=== PATIENT | female | born 1985 | race Caucasian/White ===

== ENCOUNTER 2016-11-23 13:45 | Emergency (ER) | payer SELFPAY ==
[~2016-11-23] VITALS: Ht 167.6 cm; Wt 122.7 kg
[~2016-11-23 13:45] MED LIST: NORCO 325 MG-7.1 TAB PO
[2016-11-23 13:46] VITALS: TEMP 98.1
[2016-11-23] MEDS ORDERED: LEXAPRO20 MG PO (13:50)
[2016-11-23] MEDS ORDERED: RISPERDAL3 MG PO (13:50)
[2016-11-23] MEDS ORDERED: ATARAX 25MG25 MG/TAB PO (13:51)
[2016-11-23 18:57] VITALS: BP 132/84; PULSE 70
== END 2016-11-23 18:58 | disposition home or self-care (01) ==
LOC: COL.ER 13:45
DX: G35 Multiple sclerosis (principal); H53.9 Unspecified visual disturbance; R51 Headache
CPT/HCPCS: A9585; J1200; J1885; J2550; J2765; J2930; J7030; J7060

== ENCOUNTER 2016-11-26 10:00 | Outpatient (RCR) | payer SELFPAY ==
[2016-11-25 10:23] VITALS: BP 120/63; PULSE 70; TEMP 98
[~2016-11-26] VITALS: Ht 167.6 cm; Wt 131.0 kg
[~2016-11-26 10:00] MED LIST changes: +ATARAX 25MG25 MG/TAB PO; +LEXAPRO20 MG PO; +RISPERDAL3 MG PO
[2016-11-26 10:10] VITALS: BP 133/67; PULSE 88; TEMP 98
== END 2016-11-27 11:23 ==
LOC: EUO 10:00
DX: G35 Multiple sclerosis (principal)
CPT/HCPCS: J2930; J7060

== ENCOUNTER → 2016-12-21 | Outpatient (CLI) | payer SELFPAY ==
[~2016-12-21] VITALS: Ht 167.6 cm; Wt 132.0 kg
[2016-12-21 09:01] VITALS: BP 150/80; PULSE 76
== END ==
LOC: COL.RAD 08:44
DX: Z01.89 Encounter for other specified special examinations (principal)
CPT/HCPCS: Q9967

== ENCOUNTER 2017-01-02 09:49 | Outpatient (CLI) | payer SELFPAY ==
[~2017-01-02] VITALS: Ht 167.6 cm; Wt 131.1 kg
[2017-01-02] MEDS ORDERED: KLONOPIN 0.5MG0.5 MG PO (10:18)
[2017-01-02 10:22] VITALS: BP 128/83; PULSE 85
[2017-01-02 12:00] VITALS: BP 105/68; PULSE 68; PULSE 70
[2017-01-02 12:15] VITALS: BP 118/88; PULSE 72; TEMP 98.7
[2017-01-02 12:30] VITALS: BP 127/85; PULSE 74
[2017-01-02 12:45] VITALS: BP 127/83; PULSE 73
[2017-01-02 13:00] VITALS: BP 131/91; PULSE 73
[2017-01-02 14:09] LABS: CEREBROSPINAL TUBE #4
[2017-01-02 14:10] LABS: CSF APPEARANCE CLEAR; CSF COLOR COLORLESS
[2017-01-02 14:11] LABS: CSF POLYMORPHONUCLEAR 4 % (0-6)
== END 2017-01-02 13:27 | disposition home or self-care (01) ==
LOC: COL.RAD 09:49
PROVIDERS: Psychiatry & Neurology Neurology
DX: Z86.69 Personal history of other diseases of the nervous system and sense organs (principal)

== ENCOUNTER 2017-07-27 15:01 | Emergency (ER) | payer SELFPAY ==
[~2017-07-27] VITALS: Ht 167.6 cm; Wt 115.8 kg
[~2017-07-27 15:01] MED LIST changes: +KLONOPIN 0.5MG0.5 MG PO
[2017-07-27 15:06] VITALS: PULSE 78; TEMP 98.3
[2017-07-27] MEDS ORDERED: ZOFRAN 4MG T4 MG/TAB PO (16:27)
[2017-07-27] MEDS ORDERED: NORCO 325 MG-51 TAB PO (16:27)
[2017-07-27 17:18] LABS: COLLECTION METHOD CLEAN CATCH
[2017-07-27 17:28] LABS: MUCOUS Present /lpf; PH 6 (5-8); SQUAMOUS EPITHELIAL 0-2 /hpf; URINE APPEARANCE Hazy; URINE BACTERIA None Seen /hpf; URINE BILIRUBIN Negative (NEGATIVE); URINE BLOOD Negative (NEGATIVE); URINE COLOR Yellow; URINE GLUCOSE Negative (NEGATIVE); URINE KETONE Negative (NEGATIVE); URINE LEUKOCYTE ESTERASE Negative (NEGATIVE); URINE NITRATE Negative (NEGATIVE); URINE PROTEIN(semi-quant) Negative (NEGATIVE); URINE RBC 0-2 /hpf
== END 2017-07-27 16:34 | disposition home or self-care (01) ==
LOC: COL.ER 15:01
PROVIDERS: Physician Assistant
DX: R20.2 Paresthesia of skin (principal)

== ENCOUNTER → 2017-09-13 | Outpatient (CLI) | payer SELFPAY ==
[~2017-09-13] MED LIST changes: +NORCO 325 MG-51 TAB PO; +ZOFRAN 4MG T4 MG/TAB PO
[2017-09-13 16:07] LABS: BASO # 0.1 (0.0-0.2); BASO % 0.7 % (0.0-2.0); EOS # 0.1 (0.0-0.7); EOS % 1.4 % (0-4.0); GRAN # 5.9 (1.4-6.5); GRAN % 68.4 % (42.2-75.2); HEMATOCRIT 40.7 % (37.0-47.0); HEMOGLOBIN 13.5 g/dl (12.5-16.0); LYMPH % 23.5 % (20.0-51.0); MEAN CELL VOLUME 84 fl (80.0-100.0); MEAN CORPUSCULAR HEMOGLOBIN 28 pg (27.0-31.0); MEAN CORPUSCULAR HGB CONC 33 g/dl (33.0-37.0); MEAN PLATELET VOLUME 10.7 fl (7.4-10.4); MONO # 0.5 (0.1-0.6); MONO % 5.9 % (1.7-9.3); PLATELET COUNT 201 K/mm3 (130-400); RED BLOOD COUNT 4.86 M/mm3 (4.10-5.30); REDCELL DISTRIBUTION WIDTH-CV 13.1 % (11.5-14.5)
[2017-09-13 16:18] LABS: ALBUMIN 3.9 gm/dL (3.5-5.0); BILIRUBIN,TOTAL 0.6 mg/dL (0.0-1.0); CALCIUM 8.9 mg/dL (8.4-10.2); CREATININE, serum 0.6 mg/dL (0.52-1.25); POTASSIUM 3.9 mmol/L (3.4-5.0); TOTAL PROTEIN 7.2 gm/dL (6.4-8.2)
== END ==
LOC: COL.LAB 15:14
PROVIDERS: Psychiatry & Neurology Neurology
DX: G35 Multiple sclerosis (principal); G43.109 Migraine with aura, not intractable, without status migrainosus; E55.9 Vitamin D deficiency, unspecified

== ENCOUNTER 2018-01-12 15:42 | Emergency (ER) | payer BC ==
[~2018-01-12] VITALS: Ht 167.6 cm; Wt 95.5 kg
[2018-01-12 15:49] VITALS: TEMP 98.4
[2018-01-12 16:08] LABS: COLLECTION METHOD CLEAN CATCH
[2018-01-12 16:14] LABS: MUCOUS Present /lpf; PH 7 (5-8); URINE APPEARANCE Hazy; URINE BACTERIA Rare /hpf; URINE BILIRUBIN Negative (NEGATIVE); URINE BLOOD Negative (NEGATIVE); URINE COLOR Yellow; URINE GLUCOSE Negative (NEGATIVE); URINE KETONE Negative (NEGATIVE); URINE LEUKOCYTE ESTERASE 1+ (NEGATIVE); URINE NITRATE Negative (NEGATIVE); URINE PROTEIN(semi-quant) Negative (NEGATIVE); URINE RBC 0-2 /hpf; URINE UROBILINOGEN Negative (NEGATIVE)
[2018-01-12 16:19] LABS: BASO # 0.1 (0.0-0.2); EOS # 0.1 (0.0-0.7); EOS % 1.5 % (0-4.0); GRAN # 4.7 (1.4-6.5); HEMATOCRIT 43.6 % (37.0-47.0); HEMOGLOBIN 14.5 g/dl (12.5-16.0); LYMPH # 2.3 (1.2-3.4); LYMPH % 28.2 % (20.0-51.0); MEAN CELL VOLUME 86 fl (80.0-100.0); MEAN CORPUSCULAR HEMOGLOBIN 29 pg (27.0-31.0); MEAN CORPUSCULAR HGB CONC 33 g/dl (33.0-37.0); MEAN PLATELET VOLUME 10.7 fl (7.4-10.4); MONO # 0.8 (0.1-0.6); PLATELET COUNT 300 K/mm3 (130-400); RED BLOOD COUNT 5.05 M/mm3 (4.10-5.30); REDCELL DISTRIBUTION WIDTH-CV 13.6 % (11.5-14.5)
[2018-01-12] MEDS ORDERED: SPRINTEC 35 MCG1 TAB PO (16:23)
[2018-01-12] MEDS ORDERED: ZANAFLEX2 MG PO (16:23)
[2018-01-12] MEDS ORDERED: AUBAGIO14 MG PO (16:23)
[2018-01-12 16:28] LABS: ALBUMIN 4.3 gm/dL (3.5-5.0); BILIRUBIN,TOTAL 0.7 mg/dL (0.0-1.0); CALCIUM 9.7 mg/dL (8.4-10.2); CREATININE, serum 0.68 mg/dL (0.52-1.25); POTASSIUM 4.1 mmol/L (3.4-5.0); TOTAL PROTEIN 7.8 gm/dL (6.4-8.2)
[2018-01-12] MEDS ORDERED: MACROBID 1100 MG/CAP PO (18:28)
[2018-01-12 18:41] VITALS: BP 122/103; PULSE 72
== END 2018-01-12 18:42 | disposition home or self-care (01) ==
LOC: COL.ER 15:42
PROVIDERS: Emergency Medicine
DX: R10.9 Unspecified abdominal pain (principal)
CPT/HCPCS: J7030; Q9967

== ENCOUNTER 2018-04-08 20:41 | Emergency (ER) | payer BC ==
[~2018-04-08] VITALS: Ht 167.6 cm; Wt 113.2 kg
[~2018-04-08 20:41] MED LIST changes: +AUBAGIO14 MG PO; +MACROBID 1100 MG/CAP PO; +SPRINTEC 35 MCG1 TAB PO; +ZANAFLEX2 MG PO
[2018-04-08 20:47] VITALS: TEMP 98.9
[2018-04-08 21:31] VITALS: BP 126/96; PULSE 84
[2018-04-08] MEDS ORDERED: BACTRIM DS 8001 TAB PO (21:34)
== END 2018-04-08 21:38 | disposition home or self-care (01) ==
LOC: COL.ER 20:41
DX: S91.341A Puncture wound with foreign body, right foot, initial encounter (principal); Y92.009 Unspecified place in unspecified non-institutional (private) residence as the place of occurrence of the external cause

== ENCOUNTER 2018-06-04 10:03 | Emergency (ER) | payer BC ==
[~2018-06-04] VITALS: Ht 167.6 cm; Wt 117.8 kg
[~2018-06-04 10:03] MED LIST changes: +BACTRIM DS 8001 TAB PO
[2018-06-04] MEDS ORDERED: NORCO 325 MG-51 TAB PO (10:38)
[2018-06-04] MEDS ORDERED: ZOFRAN ODT4 MG PO (10:38)
[2018-06-04 11:10] VITALS: BP 148/84; PULSE 67; TEMP 97.6
== END 2018-06-04 11:10 | disposition home or self-care (01) ==
LOC: COL.ER 10:03
DX: M79.602 Pain in left arm (principal); F31.9 Bipolar disorder, unspecified; G35 Multiple sclerosis; F43.10 Post-traumatic stress disorder, unspecified; F41.9 Anxiety disorder, unspecified; Z87.891 Personal history of nicotine dependence; Z90.89 Acquired absence of other organs

== ENCOUNTER 2018-07-24 17:54 | Emergency (ER) | payer BC ==
[~2018-07-24] VITALS: Ht 167.6 cm; Wt 113.6 kg
[~2018-07-24 17:54] MED LIST changes: +ZOFRAN ODT4 MG PO
[2018-07-24 18:02] VITALS: TEMP 98.2
[2018-07-24 18:57] LABS: BASO # 0.1 (0.0-0.2); BASO % 0.8 % (0.0-2.0); EOS # 0.2 (0.0-0.7); EOS % 1.8 % (0-4.0); GRAN # 6.3 (1.4-6.5); GRAN % 62.4 % (42.2-75.2); HEMATOCRIT 42.2 % (37.0-47.0); HEMOGLOBIN 13.8 g/dl (12.5-16.0); LYMPH # 2.6 (1.2-3.4); LYMPH % 25.2 % (20.0-51.0); MEAN CELL VOLUME 86 fl (80.0-100.0); MEAN CORPUSCULAR HEMOGLOBIN 28 pg (27.0-31.0); MEAN CORPUSCULAR HGB CONC 33 g/dl (33.0-37.0); MONO % 9.6 % (1.7-9.3); PLATELET COUNT 263 K/mm3 (130-400); RED BLOOD COUNT 4.92 M/mm3 (4.10-5.30); REDCELL DISTRIBUTION WIDTH-CV 13.2 % (11.5-14.5)
[2018-07-24 18:57] LABS: COLLECTION METHOD CLEAN CATCH
[2018-07-24 19:02] LABS: MUCOUS Present /lpf; PH 8 (5-8); SQUAMOUS EPITHELIAL 0-2 /hpf; URINE APPEARANCE Hazy; URINE BACTERIA None Seen /hpf; URINE BILIRUBIN Negative (NEGATIVE); URINE BLOOD Negative (NEGATIVE); URINE COLOR Yellow; URINE GLUCOSE Negative (NEGATIVE); URINE KETONE Negative (NEGATIVE); URINE LEUKOCYTE ESTERASE Negative (NEGATIVE); URINE NITRATE Negative (NEGATIVE); URINE PROTEIN(semi-quant) Negative (NEGATIVE); URINE RBC 0-2 /hpf; URINE UROBILINOGEN Negative (NEGATIVE)
[2018-07-24 19:10] LABS: ALBUMIN 4.1 gm/dL (3.5-5.0); BILIRUBIN,TOTAL 0.4 mg/dL (0.0-1.0); CALCIUM 9.6 mg/dL (8.4-10.2); CREATININE, serum 0.63 (0.52-1.25); POTASSIUM 3.8 mmol/L (3.4-5.0); TOTAL PROTEIN 7.6 gm/dL (6.4-8.2)
[2018-07-24 20:41] VITALS: BP 139/94; PULSE 81
== END 2018-07-24 20:41 | disposition home or self-care (01) ==
LOC: COL.ER 17:54
PROVIDERS: Emergency Medicine
DX: R10.11 Right upper quadrant pain (principal); F31.9 Bipolar disorder, unspecified; F41.9 Anxiety disorder, unspecified
CPT/HCPCS: J2270; J2405; J7030; Q9967

== ENCOUNTER → 2018-07-29 | Outpatient (CLI) | payer BC | LOC: COL.RAD 07-25 07:30 | DX: R10.11 Right upper quadrant pain (principal) ==

== ENCOUNTER 2018-09-23 09:44 | Emergency (ER) | payer BC ==
[~2018-09-23] VITALS: Ht 167.6 cm; Wt 115.9 kg
[2018-09-23 10:01] VITALS: TEMP 98.4
[2018-09-23 10:48] LABS: COLLECTION METHOD CLEAN CATCH
[2018-09-23 10:53] LABS: MUCOUS Present /lpf; PH 5 (5-8); SQUAMOUS EPITHELIAL 0-2 /hpf; URINE APPEARANCE Hazy; URINE BACTERIA Rare /hpf; URINE BILIRUBIN Negative (NEGATIVE); URINE BLOOD Negative (NEGATIVE); URINE COLOR Yellow; URINE GLUCOSE Negative (NEGATIVE); URINE KETONE Negative (NEGATIVE); URINE LEUKOCYTE ESTERASE Negative (NEGATIVE); URINE NITRATE Negative (NEGATIVE); URINE PROTEIN(semi-quant) Negative (NEGATIVE); URINE RBC None Seen /hpf; URINE UROBILINOGEN Negative (NEGATIVE)
[2018-09-23 11:36] LABS: BASO # 0.1 (0.0-0.2); BASO % 0.6 % (0.0-2.0); EOS # 0.1 (0.0-0.7); EOS % 1.6 % (0-4.0); GRAN # 5.9 (1.4-6.5); GRAN % 69.2 % (42.2-75.2); HEMATOCRIT 42.1 % (37.0-47.0); LYMPH # 1.7 (1.2-3.4); MEAN CELL VOLUME 85 fl (80.0-100.0); MEAN CORPUSCULAR HEMOGLOBIN 28 pg (27.0-31.0); MEAN CORPUSCULAR HGB CONC 33 g/dl (33.0-37.0); MONO # 0.7 (0.1-0.6); MONO % 8.4 % (1.7-9.3); PLATELET COUNT 245 K/mm3 (130-400); RED BLOOD COUNT 4.96 M/mm3 (4.10-5.30); REDCELL DISTRIBUTION WIDTH-CV 13.3 % (11.5-14.5)
[2018-09-23 11:51] LABS: ERYTHROCYTE SEDIMENTATION RATE 24 mm/hr (0-20)
[2018-09-23 11:53] LABS: ALBUMIN 4.2 gm/dL (3.5-5.0); BILIRUBIN,TOTAL 0.3 mg/dL (0.0-1.0); C-REACTIVE PROTEIN 1.4 mg/dL (0.0-0.9); CALCIUM 9.3 mg/dL (8.4-10.2); CREATININE, serum 0.57 (0.52-1.25); POTASSIUM 4.2 mmol/L (3.4-5.0); TOTAL PROTEIN 7.6 gm/dL (6.4-8.2)
[2018-09-23 14:20] VITALS: BP 133/75; PULSE 71
[2018-09-23] MEDS ORDERED: LEXAPRO 10MG10 MG PO (20:03)
[2018-09-23] MEDS ORDERED: AUBAGIO14 MG PO (20:03)
[2018-09-23] MEDS ORDERED: ATARAX 25MG25 MG/TAB PO ×2 (20:04→20:05)
[2018-09-23] MEDS ORDERED: RISPERDAL 1M1 MG/TAB PO (20:05)
[2018-09-23] MEDS ORDERED: ZANAFLEX2 MG PO (20:06)
== END 2018-09-23 14:14 | disposition home or self-care (01) ==
LOC: COL.ER 09:44
PROVIDERS: Family Medicine
DX: G35 Multiple sclerosis (principal)
CPT/HCPCS: J2930; J7060

== ENCOUNTER 2018-09-23 18:36 | Emergency (ER) | payer BC ==
[~2018-09-23] VITALS: Ht 167.6 cm; Wt 115.9 kg
[2018-09-23 18:46] VITALS: TEMP 98.7
[2018-09-23] MEDS ORDERED: AUBAGIO14 MG PO (20:03)
[2018-09-23] MEDS ORDERED: LEXAPRO 10MG10 MG PO (20:03)
[2018-09-23] MEDS ORDERED: ATARAX 25MG25 MG/TAB PO ×2 (20:04→20:05)
[2018-09-23] MEDS ORDERED: RISPERDAL 1M1 MG/TAB PO (20:05)
[2018-09-23] MEDS ORDERED: ZANAFLEX2 MG PO (20:06)
[2018-09-23 20:38] LABS: HEMATOCRIT 42.3 % (37.0-47.0); HEMOGLOBIN 14.1 g/dl (12.5-16.0); MEAN CELL VOLUME 84 fl (80.0-100.0); MEAN CORPUSCULAR HEMOGLOBIN 28 pg (27.0-31.0); MEAN CORPUSCULAR HGB CONC 33 g/dl (33.0-37.0); MEAN PLATELET VOLUME 10.4 fl (7.4-10.4); PLATELET COUNT 276 K/mm3 (130-400); RED BLOOD COUNT 5.05 M/mm3 (4.10-5.30); REDCELL DISTRIBUTION WIDTH-CV 13.5 % (11.5-14.5)
[2018-09-23 20:52] LABS: CALCIUM 9.5 mg/dL (8.4-10.2); CREATININE, serum 0.61 (0.52-1.25); POTASSIUM 3.4 mmol/L (3.4-5.0)
[2018-09-23 21:45] LABS: LYMPHOCYTE 8 % (20.0-51.0); NEUTROPHILS 91 % (42.0-75.2); PLATELET ESTIMATE NORMAL (NORMAL)
[2018-09-23 22:43] VITALS: BP 137/74; PULSE 84
== END 2018-09-23 22:41 | disposition home or self-care (01) ==
LOC: COL.ER 18:36
PROVIDERS: Physician Assistant
DX: G35 Multiple sclerosis (principal); Z87.891 Personal history of nicotine dependence
CPT/HCPCS: J2270; J2405; J7030

== ENCOUNTER 2018-09-25 16:00 | Outpatient (RCR) | payer BC ==
[2018-09-24 18:41] VITALS: BP 129/84; PULSE 84; TEMP 98.4
[~2018-09-25] VITALS: Ht 167.6 cm; Wt 124.3 kg
[~2018-09-25 16:00] MED LIST changes: +LEXAPRO 10MG10 MG PO; +RISPERDAL 1M1 MG/TAB PO
[2018-09-25 16:26] VITALS: BP 128/81; PULSE 62; TEMP 98
--- NOTE | 2018-09-26 16:55 | NUR ---
This nurse called pt prior to apt time to see if she was comming to apt.per pt she does not want anymore steriod infusions.pt states "My veins just cant take anymore IVS." This nurse encouraged pt to call Dr Welch office and report refusal of rest of apts.I left a voicemail with nidiaOffice nurse reporting pt statement and requesting clarification of order.Will await callback.
== END 2018-09-27 16:59 | disposition home or self-care (01) ==
LOC: EUO 16:00
DX: G35 Multiple sclerosis (principal)
CPT/HCPCS: J2930; J7050

== ENCOUNTER 2018-10-09 13:44 | Emergency (ER) | payer BC ==
[~2018-10-09] VITALS: Ht 167.6 cm; Wt 118.2 kg
[2018-10-09 14:58] LABS: BASO # 0.1 (0.0-0.2); BASO % 0.8 % (0.0-2.0); EOS # 0.2 (0.0-0.7); EOS % 2.2 % (0-4.0); GRAN # 4.7 (1.4-6.5); GRAN % 61.4 % (42.2-75.2); HEMATOCRIT 42.2 % (37.0-47.0); LYMPH # 2.1 (1.2-3.4); LYMPH % 27.4 % (20.0-51.0); MEAN CELL VOLUME 85 fl (80.0-100.0); MEAN CORPUSCULAR HEMOGLOBIN 28 pg (27.0-31.0); MEAN CORPUSCULAR HGB CONC 33 g/dl (33.0-37.0); MEAN PLATELET VOLUME 9.8 fl (7.4-10.4); MONO # 0.6 (0.1-0.6); MONO % 7.9 % (1.7-9.3); PLATELET COUNT 290 K/mm3 (130-400); RED BLOOD COUNT 4.96 M/mm3 (4.10-5.30); REDCELL DISTRIBUTION WIDTH-CV 13.6 % (11.5-14.5)
[2018-10-09 15:08] LABS: ALBUMIN 4.1 gm/dL (3.5-5.0); BILIRUBIN,TOTAL 0.6 mg/dL (0.0-1.0); CALCIUM 9.3 mg/dL (8.4-10.2); CREATININE, serum 0.56 (0.52-1.25); POTASSIUM 3.8 mmol/L (3.4-5.0); TOTAL PROTEIN 7.2 gm/dL (6.4-8.2)
[2018-10-09 17:54] VITALS: BP 122/86; PULSE 63; TEMP 98.2
[2018-10-10] MEDS ORDERED: BENADRYL25 M2 PO (06:30)
[2018-10-10] MEDS ORDERED: TYLENOL PM EXTR1 TA1 PO (06:31)
== END 2018-10-09 17:54 | disposition home or self-care (01) ==
LOC: COL.ER 13:44
PROVIDERS: Physician Assistant
DX: G35 Multiple sclerosis (principal); H53.9 Unspecified visual disturbance; F17.210 Nicotine dependence, cigarettes, uncomplicated; Z90.89 Acquired absence of other organs; F31.9 Bipolar disorder, unspecified
CPT/HCPCS: J2930; J7030; J7060

== ENCOUNTER 2018-10-13 07:00 | Outpatient (RCR) | payer BC ==
[2018-10-10 06:21] VITALS: BP 125/77; PULSE 81; TEMP 98.2
[2018-10-11 07:52] VITALS: BP 129/86; PULSE 80; TEMP 97.5
[2018-10-12 07:23] VITALS: BP 119/87; PULSE 67; TEMP 97.6
[~2018-10-13] VITALS: Ht 167.6 cm; Wt 124.2 kg
[~2018-10-13 07:00] MED LIST changes: +BENADRYL25 M2 PO; +TYLENOL PM EXTR1 TA1 PO
[2018-10-13 07:30] VITALS: BP 147/89; PULSE 54; TEMP 97.8
== END 2018-10-13 09:57 | disposition home or self-care (01) ==
LOC: EUO 07:00
DX: G35 Multiple sclerosis (principal)
CPT/HCPCS: J2930; J7050

== ENCOUNTER → 2018-12-12 | Outpatient (CLI) | payer BC ==
--- NOTE | 2018-12-12 14:21 | NUR ---
Was not able to update patient note in [id number] EEG system. Patient came in as outpatient for Sleep Deprived EEG Study. However, patient is very mentally strained. 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 States that she normally by this time of day has 2 cups of coffee, 2 cokes, and a monster energy drink. Patient feeling nauseous, offered to reschedule appointment if she didn't think she could make it through setup and exam. Patient declines states it is the only time available for her to complete exam. Given green nausea clean bag for study. Patient during test ahs outburst of crying in photic period. States that it is hurting. Mentions to certified pharmacy technician "this is why I cannot go to concerts" mentions again after study she is sad she no longer is able to go to raves. During photic session I offer to stop strobe light twice. Patient states she can handle it, continued to cry during that portion. Patient given tissue at the end of photic session. Slept majority of the remainder of exam. Post-exam offered patient a Pepsi. Patient declines. Mushtaq Ac, WRECKING MECHANIC
--- NOTE | 2018-12-12 14:26 | NUR ---
Called and spoke to Dr. Welch's nurse about EEG study being completed and events that took place during. Mushtaq Ac, WOOD CASKET MAKER
== END ==
LOC: COL.CARD 12:48
DX: G35 Multiple sclerosis (principal); R40.4 Transient alteration of awareness

== ENCOUNTER 2018-12-20 20:16 | Emergency (ER) | payer BC ==
[~2018-12-20] VITALS: Ht 167.6 cm; Wt 118.2 kg
[2018-12-20 21:23] LABS: BASO # 0.1 (0.0-0.2); BASO % 0.9 % (0.0-2.0); EOS # 0.2 (0.0-0.7); EOS % 2.4 % (0-4.0); GRAN # 5.6 (1.4-6.5); GRAN % 57.2 % (42.2-75.2); HEMATOCRIT 40.3 % (37.0-47.0); HEMOGLOBIN 13.2 g/dl (12.5-16.0); LYMPH # 2.9 (1.2-3.4); MEAN CELL VOLUME 87 fl (80.0-100.0); MEAN CORPUSCULAR HEMOGLOBIN 28 pg (27.0-31.0); MEAN CORPUSCULAR HGB CONC 33 g/dl (33.0-37.0); MEAN PLATELET VOLUME 10.1 fl (7.4-10.4); MONO # 0.9 (0.1-0.6); MONO % 9.3 % (1.7-9.3); PLATELET COUNT 360 K/mm3 (130-400); RED BLOOD COUNT 4.66 M/mm3 (4.10-5.30); REDCELL DISTRIBUTION WIDTH-CV 13.5 % (11.5-14.5)
[2018-12-20 21:30] LABS: ALBUMIN 4.2 gm/dL (3.5-5.0); BILIRUBIN,TOTAL 0.4 mg/dL (0.0-1.0); C-REACTIVE PROTEIN 1.2 mg/dL (0.0-0.9); CALCIUM 9.5 mg/dL (8.4-10.2); CREATININE, serum 0.64 (0.52-1.25); POTASSIUM 3.9 mmol/L (3.4-5.0); TOTAL PROTEIN 7.2 gm/dL (6.4-8.2)
[2018-12-20 22:00] LABS: COLLECTION METHOD CLEAN CATCH
[2018-12-20 22:06] LABS: MUCOUS Present /lpf; PH 6 (5-8); SQUAMOUS EPITHELIAL 0-2 /hpf; URINE APPEARANCE Clear; URINE BACTERIA None Seen /hpf; URINE BILIRUBIN Negative (NEGATIVE); URINE BLOOD Negative (NEGATIVE); URINE COLOR Yellow; URINE GLUCOSE Negative (NEGATIVE); URINE KETONE Negative (NEGATIVE); URINE LEUKOCYTE ESTERASE Negative (NEGATIVE); URINE NITRATE Negative (NEGATIVE); URINE PROTEIN(semi-quant) Negative (NEGATIVE); URINE RBC 0-2 /hpf; URINE UROBILINOGEN Negative (NEGATIVE)
[2018-12-20 22:24] VITALS: BP 132/76; PULSE 64; TEMP 98.1
== END 2018-12-20 22:25 | disposition home or self-care (01) ==
LOC: COL.ER 20:16
PROVIDERS: Emergency Medicine
DX: R10.11 Right upper quadrant pain (principal)
CPT/HCPCS: J1885; J2405; J3010; J7030

== ENCOUNTER 2019-02-14 07:31 | Emergency (ER) | payer BC ==
[~2019-02-14] VITALS: Ht 167.6 cm; Wt 113.6 kg
[2019-02-14 07:38] VITALS: TEMP 96.8
[2019-02-14] MEDS ORDERED: TUSS PO (09:47)
[2019-02-14] MEDS ORDERED: ZITHROMAX 250M250 MG PO (09:47)
[2019-02-14 10:42] VITALS: BP 146/108; PULSE 82
== END 2019-02-14 10:55 | disposition home or self-care (01) ==
LOC: COL.ER 07:31
DX: J20.9 Acute bronchitis, unspecified (principal); R42 Dizziness and giddiness; Z88.6 Allergy status to analgesic agent
CPT/HCPCS: J8540

== ENCOUNTER 2019-03-03 16:20 | Emergency (ER) | payer BC, OTHER ==
[~2019-03-03] VITALS: Ht 167.6 cm; Wt 130.0 kg
[~2019-03-03 16:20] MED LIST changes: +TUSS PO; +ZITHROMAX 250M250 MG PO
[2019-03-03 18:26] LABS: ALBUMIN 4.3 gm/dL (3.5-5.0); BILIRUBIN,TOTAL 0.5 mg/dL (0.0-1.0); CALCIUM 8.5 mg/dL (8.4-10.2); CREATININE, serum 0.66 (0.52-1.25); POTASSIUM 3.8 mmol/L (3.4-5.0); TOTAL PROTEIN 7.4 gm/dL (6.4-8.2)
[2019-03-03 18:38] LABS: BASO # 0.1 (0.0-0.2); BASO % 0.9 % (0.0-2.0); EOS # 0.2 (0.0-0.7); EOS % 1.7 % (0-4.0); GRAN # 7.6 (1.4-6.5); GRAN % 66.3 % (42.2-75.2); HEMATOCRIT 42.1 % (37.0-47.0); HEMOGLOBIN 13.6 g/dl (12.5-16.0); LYMPH # 2.6 (1.2-3.4); MEAN CELL VOLUME 86 fl (80.0-100.0); MEAN CORPUSCULAR HEMOGLOBIN 28 pg (27.0-31.0); MEAN CORPUSCULAR HGB CONC 32 g/dl (33.0-37.0); MEAN PLATELET VOLUME 10.1 fl (7.4-10.4); MONO # 0.9 (0.1-0.6); MONO % 7.7 % (1.7-9.3); PLATELET COUNT 393 K/mm3 (130-400); RED BLOOD COUNT 4.88 M/mm3 (4.10-5.30); REDCELL DISTRIBUTION WIDTH-CV 13.2 % (11.5-14.5)
[2019-03-03 19:30] LABS: COLLECTION METHOD CLEAN CATCH
[2019-03-03 19:41] LABS: PH 5 (5-8); SQUAMOUS EPITHELIAL 0-2 /hpf; URINE APPEARANCE Clear; URINE BACTERIA None Seen /hpf; URINE BILIRUBIN Negative (NEGATIVE); URINE BLOOD Negative (NEGATIVE); URINE COLOR Yellow; URINE GLUCOSE Negative (NEGATIVE); URINE KETONE Negative (NEGATIVE); URINE LEUKOCYTE ESTERASE Negative (NEGATIVE); URINE NITRATE Negative (NEGATIVE); URINE PROTEIN(semi-quant) Negative (NEGATIVE); URINE RBC 0-2 /hpf; URINE UROBILINOGEN Negative (NEGATIVE)
[2019-03-03 22:54] VITALS: BP 144/76; PULSE 86; TEMP 98.4
[2019-03-04] MEDS ORDERED: LEXAPRO20 MG PO (16:43)
[2019-03-04] MEDS ORDERED: RISPERDAL 1M1 MG/TAB PO (16:43)
[2019-03-04] MEDS ORDERED: ATARAX 25MG25 MG/TAB PO (16:45)
== END 2019-03-03 22:56 | disposition home or self-care (01) ==
LOC: COL.ER 16:20
PROVIDERS: Emergency Medicine
DX: G35 Multiple sclerosis (principal); F41.9 Anxiety disorder, unspecified
CPT/HCPCS: J2930; J7060

== ENCOUNTER 2019-03-04 16:07 | Outpatient (RCR) | payer BC, OTHER ==
[~2019-03-04] VITALS: Ht 167.6 cm; Wt 128.0 kg
[2019-03-04] MEDS ORDERED: LEXAPRO20 MG PO (16:43)
[2019-03-04] MEDS ORDERED: RISPERDAL 1M1 MG/TAB PO (16:43)
[2019-03-04] MEDS ORDERED: ATARAX 25MG25 MG/TAB PO (16:45)
[2019-03-04 17:26] VITALS: BP 142/83; PULSE 86; TEMP 98
--- NOTE | 2019-03-04 17:26 | NUR ---
Pt reported dizziness and vision changes,describes as "wavy lines in my outside vision." This nurse stopped infusion,called Dr Welch.Vital signs as follows, 142/83, pulse 86,98% on room air, RR 16.Per Dr Welch ok to restart infusion and monitor pt.
--- NOTE | 2019-03-05 18:00 | NUR ---
Pt admitted today as inpt.
[2019-03-07] MEDS ORDERED: PREDNISONE10 MG PO (09:39)
== END 2019-03-07 08:52 | disposition other institution (70) ==
LOC: EUO 16:07
DX: G35 Multiple sclerosis (principal)
CPT/HCPCS: J2930; J7050

== ENCOUNTER 2019-03-05 07:30 | Inpatient (IN) | payer BC, OTHER ==
[~2019-03-05] VITALS: Ht 167.6 cm; Wt 127.0 kg
[2019-03-05 10:13] LABS: HEMATOCRIT 41.6 % (37.0-47.0); HEMOGLOBIN 13.6 g/dl (12.5-16.0); MEAN CELL VOLUME 86 fl (80.0-100.0); MEAN CORPUSCULAR HEMOGLOBIN 28 pg (27.0-31.0); MEAN CORPUSCULAR HGB CONC 33 g/dl (33.0-37.0); MEAN PLATELET VOLUME 9.9 fl (7.4-10.4); PLATELET COUNT 415 K/mm3 (130-400); RED BLOOD COUNT 4.84 M/mm3 (4.10-5.30); REDCELL DISTRIBUTION WIDTH-CV 13.5 % (11.5-14.5)
[2019-03-05 10:15] LABS: COLLECTION METHOD CLEAN CATCH
[2019-03-05 10:25] LABS: MUCOUS Present /lpf; PH 6 (5-8); URINE APPEARANCE Hazy; URINE BACTERIA None Seen /hpf; URINE BILIRUBIN Negative (NEGATIVE); URINE BLOOD Negative (NEGATIVE); URINE COLOR Yellow; URINE GLUCOSE Negative (NEGATIVE); URINE KETONE Negative (NEGATIVE); URINE LEUKOCYTE ESTERASE Negative (NEGATIVE); URINE NITRATE Negative (NEGATIVE); URINE PROTEIN(semi-quant) 1+ (NEGATIVE); URINE RBC 0-2 /hpf; URINE UROBILINOGEN Negative (NEGATIVE)
[2019-03-05 10:37] LABS: BAND 9 % (0-10); LYMPHOCYTE 6 % (20.0-51.0); NEUTROPHILS 80 % (42.0-75.2); PLATELET ESTIMATE NORMAL (NORMAL)
[2019-03-05 10:39] LABS: ALBUMIN 4.2 gm/dL (3.5-5.0); BILIRUBIN,TOTAL 0.4 mg/dL (0.0-1.0); CALCIUM 8.6 mg/dL (8.4-10.2); CREATININE, serum 0.51 (0.52-1.25); MAGNESIUM 2.3 mg/dL (1.6-2.3); POTASSIUM 3.8 mmol/L (3.4-5.0); TOTAL PROTEIN 7.2 gm/dL (6.4-8.2)
[2019-03-05 11:09] LABS: TSH w REFLEX 1.51 uIU/mL (0.465-4.680)
[2019-03-05 15:16] VITALS: BP 128/86; PULSE 76; TEMP 98.1
--- NOTE | 2019-03-05 15:20 | NUR ---
Pt arrived from [facility] by wheelchair. Pt is AxOx4. Pt is on RA sating well. Pt states she has rippled vision in her bilateral peripheral vision and her left eye vision is gamboa. Pt states she has had intermittent muscle tremors. Pt's VSS. Pt oriented to room and floor. Pt denies pain but states she "feels off". is bedside to eval Pt. Will contniue to monitor.
[2019-03-05 15:49] VITALS: BP 128/86; PULSE 70
--- NOTE | 2019-03-05 16:00 | NUR ---
bedside to eval pt.
--- NOTE | 2019-03-05 16:29 | NUR ---
's office called and records requested.
--- NOTE | 2019-03-05 17:51 | NUR ---
CALLED REGARDING HOME MEDS. STATES HE WILL ADDRESS.
[2019-03-05 19:03] VITALS: BP 137/87; PULSE 77; TEMP 97.7
--- NOTE | 2019-03-05 20:00 | NUR ---
Received report from REBECCA Juarez. Assessment complete. Alert and oriented. Boyfriend at bedside. C/O muscle spasm to left shoulder that radiates down her left arm that comes and goes. Meds administered as ordered. PRN atarax administered as requested by pt for anxiety. IV to LAC intact with fluids infusing, dressing CDI. Needs attended too. Call light within reach.
[2019-03-05 23:47] VITALS: BP 121/68; PULSE 51; TEMP 97.7
[2019-03-06 03:57] VITALS: BP 117/78; PULSE 50; TEMP 97.4
--- NOTE | 2019-03-06 06:35 | NUR ---
Pt uneventful during this shift. Meds administered. c/o muscle spasms. PRN Atarax given as requested by pt before bed. Needs met. call light within reach.
--- NOTE | 2019-03-06 07:04 | NUR ---
Report given to REBECCA Gotti.
[2019-03-06 07:22] VITALS: BP 128/79; PULSE 56; TEMP 97.6
--- NOTE | 2019-03-06 08:12 | NUR ---
Patient refused EEG this morning states that her last EEG from December 12, 2018 was "awful" she was in so much "pain" during exam she cried through it. Patient also states that she is exhausted and did not sleep well, I explained that will make the results better and that majority of the time we order them sleep deprived. Patient continues to refuse. I was the tents assembler that completed the EEG outpatient on December 12 and have a descriptive note from that visit, and called Dr. Welch at that time to explain patient's state of mind and concerns with exam. Mushtaq Ac, LUNCHROOM ATTENDANT
--- NOTE | 2019-03-06 09:44 | NUR ---
Patient is A/O, Complained of tiredness. she refuse EEG this morning because her last one 2 months ago was painful and she does not want to go through such pain at this time. Patient said she is feeling some discomfort in her eyes and she need to get some sleep because she did not sleep well last night.
--- NOTE | 2019-03-06 11:22 | NUR ---
SW attended clinical rounds. Plan is for an EEG. SW then met with the patient to discuss discharge plan. The patient lives in [place] with her life partner, Chano Brock (ph#[phone]). She reports needing occasional assistance with bathing, when her MS is bad. She does not have any DME. She states that her life partner is making her a cane, but that she would be interested in getting a cane while he is making her one. SW informed the patient on where she can obtain one. The patient states that her partner will help her with bathing when that does happen. The patient's PCP is Dr. Jhonny Mccoy and she receives her medications at [facility]. She reports difficulties affording her medications. SW discussed [place], [facility], and speaking to her PCP about any less expensive options or free samples. The patient was interested in speaking to Financial Counseling about financial assistance through the hospital and about applying for Medicaid and disability. SW consulted Financial Counselor, Harshad. The patient does not have advanced directives, but she was interested in completing a DPOA-HC. SW provided form. The patient designated her life partner, Chano Brock, and her other life partner Greg Hillman (ph#[phone]). PATRICK and dairy inspector, Mae, witnessed the patient's signature. The patient was provided with the original and some copies. SW placed a copy in the patient's chart. The patient plans to return home with her life partner, Chano, upon discharge. SW to continue to follow for any medication assistance.
[2019-03-06 11:43] LABS: HEMATOCRIT 42.4 % (37.0-47.0); MEAN CELL VOLUME 87 fl (80.0-100.0); MEAN CORPUSCULAR HEMOGLOBIN 29 pg (27.0-31.0); MEAN CORPUSCULAR HGB CONC 33 g/dl (33.0-37.0); MEAN PLATELET VOLUME 9.9 fl (7.4-10.4); PLATELET COUNT 335 K/mm3 (130-400); REDCELL DISTRIBUTION WIDTH-CV 13.6 % (11.5-14.5)
[2019-03-06 11:53] LABS: CALCIUM 8.5 mg/dL (8.4-10.2); CREATININE, serum 0.54 (0.52-1.25); POTASSIUM 3.8 mmol/L (3.4-5.0)
[2019-03-06 12:30] VITALS: BP 133/82; PULSE 79; TEMP 98.2
[2019-03-06 12:34] LABS: LYMPHOCYTE 13 % (20.0-51.0); NEUTROPHILS 86 % (42.0-75.2)
[2019-03-06 12:35] LABS: PLATELET ESTIMATE NORMAL (NORMAL)
[2019-03-06 16:43] VITALS: BP 133/72; PULSE 68; TEMP 98
--- NOTE | 2019-03-06 19:09 | NUR ---
Patient just finished dinner, she is alert and oriented. she is currently sitting on her bed. Bedside report given to REBECCA Sanchez. Patient was informed that EEG will be done tomorrow 03/07/2019.
[2019-03-06 19:36] VITALS: BP 131/78; PULSE 99; TEMP 97.7
[2019-03-06 23:30] VITALS: BP 128/72; PULSE 62; TEMP 97.4
[2019-03-07 03:58] VITALS: BP 127/84; PULSE 47; TEMP 97.8
--- NOTE | 2019-03-07 06:42 | NUR ---
report given to REBECCA Gotti.
--- NOTE | 2019-03-07 07:18 | NUR ---
Called and Spoke with REBECCA Sousa at this time about what time would work best for EEG. Planning to complete at 10:00 this morning when patient is more awake and relaxed. Mushtaq Ac, CHAIRMAN AND CEO
[2019-03-07 07:43] LABS: BASO % 0.1 % (0.0-2.0); GRAN # 8.7 (1.4-6.5); GRAN % 83.7 % (42.2-75.2); HEMATOCRIT 39.2 % (37.0-47.0); HEMOGLOBIN 12.9 g/dl (12.5-16.0); LYMPH # 1.3 (1.2-3.4); LYMPH % 12.9 % (20.0-51.0); MEAN CELL VOLUME 86 fl (80.0-100.0); MEAN CORPUSCULAR HEMOGLOBIN 28 pg (27.0-31.0); MEAN CORPUSCULAR HGB CONC 33 g/dl (33.0-37.0); MEAN PLATELET VOLUME 10.3 fl (7.4-10.4); MONO # 0.3 (0.1-0.6); MONO % 2.5 % (1.7-9.3); PLATELET COUNT 291 K/mm3 (130-400); RED BLOOD COUNT 4.55 M/mm3 (4.10-5.30); REDCELL DISTRIBUTION WIDTH-CV 13.2 % (11.5-14.5)
[2019-03-07 07:50] LABS: CALCIUM 8.5 mg/dL (8.4-10.2); CREATININE, serum 0.49 (0.52-1.25); POTASSIUM 3.8 mmol/L (3.4-5.0)
[2019-03-07 07:58] VITALS: BP 143/92; PULSE 66; TEMP 97.7
[2019-03-07] MEDS ORDERED: PREDNISONE10 MG PO (09:39)
[2019-03-07 11:36] VITALS: BP 142/88; PULSE 50; TEMP 97.4
--- NOTE | 2019-03-07 15:21 | NUR ---
Patient is A/O. she said she is feeling better and stronger today compared to yesterday. EEG was done this morning. Patient said her the rippling feeling on her left eye has reduced. Patient denies any pain. Today plan is to receive the last dose of Methylprednisolone (3 of 3) and then discharge home with family.
--- NOTE | 2019-03-07 18:26 | NUR ---
Patient recieved back her own meication Aubagio, eyewear-glasses, earring, and cell phone. patient received instruction and information about Prednisone (starting this new medication), how to throw out used medication and Multiple Sclerosis dischargeinformation. Patient recieved a work release to go back to work on 03/10/2019. Patient is discharged and declined any ambulance assistant to traansport her with a wheel chair. Patient discharged.
== END 2019-03-07 17:20 | disposition home or self-care (01) | DRG 60 ==
LOC: COL.ER 07:30 → MEDICAL 13:41
PROVIDERS: Emergency Medicine; Physician Assistant; ADMIT Student in an Organized Health Care Education/Training Program
DX: G35 Multiple sclerosis (principal); F41.9 Anxiety disorder, unspecified; F31.9 Bipolar disorder, unspecified; Z87.891 Personal history of nicotine dependence; Z88.1 Allergy status to other antibiotic agents; Z88.8 Allergy status to other drugs, medicaments and biological substances; H53.8 Other visual disturbances; G47.33 Obstructive sleep apnea (adult) (pediatric); F43.10 Post-traumatic stress disorder, unspecified
CPT/HCPCS: 99232-AI; 99239; A9585; J2930; J7030; J7050

== ENCOUNTER 2019-06-23 11:19 | Emergency (ER) | payer BC ==
[~2019-06-23] VITALS: Ht 167.6 cm; Wt 127.3 kg
[~2019-06-23 11:19] MED LIST changes: +PREDNISONE10 MG PO
[2019-06-23 11:27] VITALS: TEMP 99.7
[2019-06-23] MEDS ORDERED: CLEOCIN HCL300 MG PO (11:36)
[2019-06-23] MEDS ORDERED: IMURAN 50MG TAB50 MG PO (11:36)
[2019-06-23 12:14] LABS: BASO % 0.4 % (0.0-2.0); EOS # 0.4 (0.0-0.7); EOS % 4.8 % (0-4.0); GRAN # 5.3 (1.4-6.5); GRAN % 72.5 % (42.2-75.2); HEMOGLOBIN 13.8 g/dl (12.5-16.0); LYMPH # 1.1 (1.2-3.4); LYMPH % 14.9 % (20.0-51.0); MEAN CELL VOLUME 86 fl (80.0-100.0); MEAN CORPUSCULAR HEMOGLOBIN 28 pg (27.0-31.0); MEAN CORPUSCULAR HGB CONC 33 g/dl (33.0-37.0); MEAN PLATELET VOLUME 9.9 fl (7.4-10.4); MONO # 0.5 (0.1-0.6); MONO % 7.1 % (1.7-9.3); PLATELET COUNT 312 K/mm3 (130-400); RED BLOOD COUNT 4.91 M/mm3 (4.10-5.30); REDCELL DISTRIBUTION WIDTH-CV 13.8 % (11.5-14.5)
[2019-06-23 12:30] LABS: ALBUMIN 4.2 gm/dL (3.5-5.0); BILIRUBIN,TOTAL 0.7 mg/dL (0.0-1.0); C-REACTIVE PROTEIN 2.4 mg/dL (0.0-0.9); CALCIUM 8.6 mg/dL (8.4-10.2); CREATININE, serum 0.66 (0.52-1.25); POTASSIUM 3.7 mmol/L (3.4-5.0); TOTAL PROTEIN 7.3 gm/dL (6.4-8.2)
[2019-06-23 12:50] LABS: COLLECTION METHOD CLEAN CATCH
[2019-06-23 13:25] LABS: MUCOUS Present /lpf; PH 5 (5-8); URINE APPEARANCE Cloudy; URINE BACTERIA Occasional /hpf; URINE BILIRUBIN Negative (NEGATIVE); URINE BLOOD 3+ (NEGATIVE); URINE COLOR Amber; URINE GLUCOSE Negative (NEGATIVE); URINE KETONE Negative (NEGATIVE); URINE LEUKOCYTE ESTERASE Trace (NEGATIVE); URINE NITRATE Negative (NEGATIVE); URINE PROTEIN(semi-quant) 1+ (NEGATIVE); URINE RBC >50 /hpf; URINE UROBILINOGEN Negative (NEGATIVE)
[2019-06-23] MEDS ORDERED: ZOFRAN ODT4 MG PO (14:24)
[2019-06-23 14:40] VITALS: BP 119/81; PULSE 77
== END 2019-06-23 14:40 | disposition home or self-care (01) ==
LOC: COL.ER 11:19
PROVIDERS: Emergency Medicine
DX: R11.10 Vomiting, unspecified (principal); R19.7 Diarrhea, unspecified; F41.9 Anxiety disorder, unspecified; F31.9 Bipolar disorder, unspecified; G35 Multiple sclerosis
CPT/HCPCS: C9113; J2405; J7030

== ENCOUNTER 2019-06-25 12:01 | Emergency (ER) | payer BC ==
[~2019-06-25] VITALS: Ht 167.6 cm; Wt 127.3 kg
[~2019-06-25 12:01] MED LIST changes: +CLEOCIN HCL300 MG PO; +IMURAN 50MG TAB50 MG PO
[2019-06-25 13:49] LABS: COLLECTION METHOD CLEAN CATCH
[2019-06-25 14:05] LABS: AMORPHOUS CRYSTAL Present /uL; MUCOUS Present /lpf; PH 5 (5-8); SQUAMOUS EPITHELIAL None Seen /hpf; URINE APPEARANCE Turbid; URINE BACTERIA Many /hpf; URINE BILIRUBIN Negative (NEGATIVE); URINE BLOOD Negative (NEGATIVE); URINE COLOR Amber; URINE GLUCOSE Negative (NEGATIVE); URINE KETONE Negative (NEGATIVE); URINE LEUKOCYTE ESTERASE Negative (NEGATIVE); URINE NITRATE Negative (NEGATIVE); URINE PROTEIN(semi-quant) 1+ (NEGATIVE); URINE RBC None Seen /hpf; URINE UROBILINOGEN Negative (NEGATIVE)
[2019-06-25 14:08] LABS: BASO % 0.4 % (0.0-2.0); EOS # 0.4 (0.0-0.7); EOS % 4.1 % (0-4.0); GRAN # 5.9 (1.4-6.5); GRAN % 64.2 % (42.2-75.2); HEMATOCRIT 41.6 % (37.0-47.0); HEMOGLOBIN 13.6 g/dl (12.5-16.0); LYMPH # 2.1 (1.2-3.4); LYMPH % 23.3 % (20.0-51.0); MEAN CELL VOLUME 85 fl (80.0-100.0); MEAN CORPUSCULAR HEMOGLOBIN 28 pg (27.0-31.0); MEAN CORPUSCULAR HGB CONC 33 g/dl (33.0-37.0); MEAN PLATELET VOLUME 10.2 fl (7.4-10.4); MONO # 0.7 (0.1-0.6); MONO % 7.8 % (1.7-9.3); PLATELET COUNT 384 K/mm3 (130-400); RED BLOOD COUNT 4.91 M/mm3 (4.10-5.30); REDCELL DISTRIBUTION WIDTH-CV 13.7 % (11.5-14.5)
[2019-06-25 14:17] LABS: ALBUMIN 4.5 gm/dL (3.5-5.0); BILIRUBIN,TOTAL 0.7 mg/dL (0.0-1.0); CALCIUM 9.3 mg/dL (8.4-10.2); CREATININE, serum 0.69 (0.52-1.25); POTASSIUM 3.6 mmol/L (3.4-5.0); TOTAL PROTEIN 7.9 gm/dL (6.4-8.2)
[2019-06-25 15:17] VITALS: TEMP 98.1
[2019-06-25 17:02] VITALS: BP 137/92; PULSE 80
== END 2019-06-25 17:02 | disposition home or self-care (01) ==
LOC: COL.ER 12:01
PROVIDERS: Physician Assistant
DX: K52.9 Noninfective gastroenteritis and colitis, unspecified (principal); F31.9 Bipolar disorder, unspecified; F41.9 Anxiety disorder, unspecified; Z87.891 Personal history of nicotine dependence; Z88.1 Allergy status to other antibiotic agents
CPT/HCPCS: J2405; J3010; J7030; Q9967

== ENCOUNTER 2019-06-29 13:43 | Emergency (ER) | payer BC ==
[~2019-06-29] VITALS: Ht 167.6 cm; Wt 127.3 kg
[2019-06-29 13:53] VITALS: TEMP 97.6
[2019-06-29 14:27] LABS: BASO # 0.2 (0.0-0.2); BASO % 0.8 % (0.0-2.0); EOS # 0.3 (0.0-0.7); EOS % 1.5 % (0-4.0); GRAN # 16.2 (1.4-6.5); HEMOGLOBIN 15.3 g/dl (12.5-16.0); LYMPH # 3.5 (1.2-3.4); LYMPH % 16.3 % (20.0-51.0); MEAN CELL VOLUME 84 fl (80.0-100.0); MEAN CORPUSCULAR HEMOGLOBIN 28 pg (27.0-31.0); MEAN CORPUSCULAR HGB CONC 33 g/dl (33.0-37.0); MEAN PLATELET VOLUME 10.3 fl (7.4-10.4); MONO % 4.8 % (1.7-9.3); PLATELET COUNT 538 K/mm3 (130-400); RED BLOOD COUNT 5.47 M/mm3 (4.10-5.30); REDCELL DISTRIBUTION WIDTH-CV 14.2 % (11.5-14.5)
[2019-06-29 14:43] LABS: BILIRUBIN,TOTAL 0.6 mg/dL (0.0-1.0); C-REACTIVE PROTEIN 0.9 mg/dL (0.0-0.9); CALCIUM 10.6 mg/dL (8.4-10.2); CREATININE, serum 0.82 (0.52-1.25); POTASSIUM 3.6 mmol/L (3.4-5.0); TOTAL PROTEIN 8.8 gm/dL (6.4-8.2)
[2019-06-29] MEDS ORDERED: CIPRO 500MG TA500 MG PO (16:29)
[2019-06-29] MEDS ORDERED: FLAGYL500 MG PO (16:29)
[2019-06-29] MEDS ORDERED: NORCO 325 MG-51 TAB PO (16:31)
[2019-06-29 17:05] VITALS: BP 132/111; PULSE 80
== END 2019-06-29 17:05 | disposition home or self-care (01) ==
LOC: COL.ER 13:43
PROVIDERS: Nurse Practitioner
DX: R10.32 Left lower quadrant pain (principal); F41.9 Anxiety disorder, unspecified; F31.9 Bipolar disorder, unspecified; G35 Multiple sclerosis; J45.909 Unspecified asthma, uncomplicated; Z87.891 Personal history of nicotine dependence
CPT/HCPCS: J1170; J2405; J2550; J7030; Q9967

== ENCOUNTER 2019-07-03 16:20 | Emergency (ER) | payer BC ==
[~2019-07-03] VITALS: Ht 167.6 cm; Wt 127.3 kg
[~2019-07-03 16:20] MED LIST changes: +CIPRO 500MG TA500 MG PO; +FLAGYL500 MG PO
[2019-07-03 16:23] VITALS: TEMP 99
[2019-07-03 19:39] VITALS: BP 127/97; PULSE 81
== END 2019-07-03 19:52 | disposition home or self-care (01) ==
LOC: COL.ER 16:20
DX: R19.7 Diarrhea, unspecified (principal); R11.2 Nausea with vomiting, unspecified; F31.9 Bipolar disorder, unspecified; J45.909 Unspecified asthma, uncomplicated; Z79.891 Long term (current) use of opiate analgesic; Z90.89 Acquired absence of other organs
CPT/HCPCS: J1170; J2550; J7030

== ENCOUNTER 2019-07-07 15:08 | Day surgery (SDC) | payer BC ==
[~2019-07-07] VITALS: Ht 167.6 cm; Wt 126.7 kg
[2019-07-07 15:24] VITALS: BP 142/77; PULSE 104; TEMP 98.8
--- NOTE | 2019-07-07 16:15 | NUR ---
Patient ambulated to room 350, alert and oriented x 3. Patient oriented to room, initial and 5 page complete. States mild pain to right flank. Dr. Valentine in to see patient. Dr. Thomas in to see patient. No further needs at this time.
--- NOTE | 2019-07-07 17:38 | NUR ---
Patient educated on bowel prep, IV fluids initiated per orders. Zofran given per orders, patient states she believes it is the smell of the gatorade that makes her feel like vomiting
[2019-07-07 18:53] LABS: BASO # 0.1 (0.0-0.2); BASO % 1.3 % (0.0-2.0); EOS # 0.6 (0.0-0.7); EOS % 6.2 % (0-4.0); GRAN # 5.7 (1.4-6.5); GRAN % 62.3 % (42.2-75.2); HEMATOCRIT 44.5 % (37.0-47.0); HEMOGLOBIN 14.8 g/dl (12.5-16.0); LYMPH # 2.1 (1.2-3.4); LYMPH % 22.7 % (20.0-51.0); MEAN CELL VOLUME 83 fl (80.0-100.0); MEAN CORPUSCULAR HEMOGLOBIN 28 pg (27.0-31.0); MEAN CORPUSCULAR HGB CONC 33 g/dl (33.0-37.0); MEAN PLATELET VOLUME 10.6 fl (7.4-10.4); MONO # 0.7 (0.1-0.6); MONO % 7.3 % (1.7-9.3); PLATELET COUNT 387 K/mm3 (130-400); RED BLOOD COUNT 5.39 M/mm3 (4.10-5.30); REDCELL DISTRIBUTION WIDTH-CV 14.2 % (11.5-14.5)
--- NOTE | 2019-07-07 18:57 | NUR ---
Reported off to car head liner installer.
[2019-07-07 19:02] LABS: ALBUMIN 4.6 gm/dL (3.5-5.0); BILIRUBIN,TOTAL 1.1 mg/dL (0.0-1.0); CALCIUM 9.4 mg/dL (8.4-10.2); CREATININE, serum 0.62 (0.52-1.25); POTASSIUM 3.4 mmol/L (3.4-5.0); TOTAL PROTEIN 7.9 gm/dL (6.4-8.2)
[2019-07-07 19:30] VITALS: BP 132/91; PULSE 88; TEMP 98.4
--- NOTE | 2019-07-07 20:00 | NUR ---
Received report from REBECCA Mendoza. Pt is currently lying in bed. Pt has been taking her bowel prep. Pt has had some nausea but pt was informed that she was not yet able to have something for nausea. Pt vitals were all within normal limits. Pt lungs sounds were clear and heart sounds were normal S1 and S2 sounds. Pt as been able to ambulate to the bathroom when needed. Pt has fluids infusing at thit time. Pt has her call light within reach.
--- NOTE | 2019-07-07 21:00 | NUR ---
Received report from REBECCA Mendoza. Pt is currently drinking her prep has no concerns at this time. Pt has her call light within reach.
--- NOTE | 2019-07-08 00:15 | NUR ---
Pt was able to finish her bowel prep. Pt is now NPO and is currently lying in bed. She has her call light within reach.
[2019-07-08 00:45] VITALS: BP 138/98; PULSE 103; TEMP 98.6
[2019-07-08 03:32] VITALS: BP 126/86; PULSE 84; TEMP 97.7
[2019-07-08 06:17] VITALS: PULSE 84; TEMP 97.7
--- NOTE | 2019-07-08 06:17 | NUR ---
Pt LR fluids were hung on gravity flow tubing at this time. Pt was able to get on a new gown at this time and void. Pt pre-op checklist was done and pt consent was signed. Pt is currently lying in bed and awaiting for her procedure this morning.
--- NOTE | 2019-07-08 06:50 | NUR ---
Patient to EGD
--- NOTE | 2019-07-08 06:53 | NUR ---
Pt ambulated to the [facility] to be taken down for her procedure.
[2019-07-08 07:48] VITALS: BP 145/80; PULSE 101; TEMP 98.7
--- NOTE | 2019-07-08 08:32 | NUR ---
Patient back up from EGD. Alert and oriented x 3. Friend at bedside. Denies pain at this time. Patient states this is the best she has felt for a few days. Post op VSS. Post op fluids infusing per orders to Right AC. Denies further needs at this time.
[2019-07-08] MEDS ORDERED: PROTONIX 40MG T40 MG PO (09:02)
--- NOTE | 2019-07-08 09:42 | NUR ---
Jewelry Sales met with patient to discuss discharge planning. Patient lives in [place] with her life partner, Chano (ph#[phone]) and sees Dr. Mccoy for primary care. Patient obtains medications from [facility] with no difficulties. Patient does not use any DME and reports independence with ADLS. Patient has DPOA- which designates her partner Chano and former partner, Greg Hillman. Patient plans to return home upon discharge and states she is ready to get home. No additional needs identified at this time.
--- NOTE | 2019-07-08 10:20 | NUR ---
Discharge education provided to patient. Educated on all new medications and when to call providers. GI office to call and schedule appointment. All questions answered. Denies further needs at this time. INT to left AC discontinued, catheter tip intact. Denies further needs at this time. Patient out with surgical staff and friend.
[2019-07-08 10:32] VITALS: BP 148/108; PULSE 86
== END 2019-07-08 10:30 | disposition home or self-care (01) ==
LOC: SDCO 15:08 → SURG 15:08 → SDCO 07-08 10:30 → SURG 07-08 10:30 → EDSTATUS 07-08 11:00 → SDCO 07-08 11:00
PROVIDERS: Hospitalist
DX: K52.9 Noninfective gastroenteritis and colitis, unspecified (principal); K21.0 Gastro-esophageal reflux disease with esophagitis; K44.9 Diaphragmatic hernia without obstruction or gangrene; K29.50 Unspecified chronic gastritis without bleeding; K29.80 Duodenitis without bleeding; D12.3 Benign neoplasm of transverse colon; K62.89 Other specified diseases of anus and rectum; G35 Multiple sclerosis; E28.2 Polycystic ovarian syndrome; F43.10 Post-traumatic stress disorder, unspecified; F41.9 Anxiety disorder, unspecified; E66.9 Obesity, unspecified; Z68.42 Body mass index [BMI] 45.0-49.9, adult; Z79.899 Other long term (current) drug therapy; Z87.891 Personal history of nicotine dependence; Z88.1 Allergy status to other antibiotic agents; Z88.8 Allergy status to other drugs, medicaments and biological substances
CPT/HCPCS: 99222-AI; 99239; G0378; G0379; J2405; J2704; J7030; J7500

== ENCOUNTER 2019-09-21 07:56 | Outpatient (RCR) | payer BC ==
[2019-09-20 08:15] VITALS: BP 126/82; PULSE 63; TEMP 98.8
[~2019-09-21] VITALS: Ht 167.6 cm; Wt 128.6 kg
[~2019-09-21 07:56] MED LIST changes: +MICROGESTIN 1/21 TAB PO; +PROTONIX 40MG T40 MG PO
[2019-09-22 16:10] VITALS: BP 121/82; PULSE 59; TEMP 98.1
== END 2019-09-22 16:11 | disposition home or self-care (01) ==
LOC: EUO 08:15
DX: G35 Multiple sclerosis (principal)
CPT/HCPCS: J2930; J7050

== ENCOUNTER 2019-12-05 11:00 | Outpatient (RCR) | payer BC ==
[2019-11-21] VITALS (16 sets, daily range): BP systolic 111–136; BP diastolic 71–90; PULSE 71–95; TEMP 98.3–99.5
[2019-11-21 12:05] LABS: BASO # 0.1 (0.0-0.2); BASO % 0.7 % (0.0-2.0); EOS # 0.1 (0.0-0.7); EOS % 1.7 % (0-4.0); GRAN # 4.4 (1.4-6.5); GRAN % 61.5 % (42.2-75.2); HEMATOCRIT 42.2 % (37.0-47.0); HEMOGLOBIN 13.8 g/dl (12.5-16.0); LYMPH # 2.2 (1.2-3.4); LYMPH % 30.8 % (20.0-51.0); MEAN CELL VOLUME 86 fl (80.0-100.0); MEAN CORPUSCULAR HEMOGLOBIN 28 pg (27.0-31.0); MEAN CORPUSCULAR HGB CONC 33 g/dl (33.0-37.0); MONO # 0.4 (0.1-0.6); MONO % 5.2 % (1.7-9.3); PLATELET COUNT 361 K/mm3 (130-400); RED BLOOD COUNT 4.93 M/mm3 (4.10-5.30); REDCELL DISTRIBUTION WIDTH-CV 13.8 % (11.5-14.5)
[2019-11-21 12:42] LABS: ALBUMIN 4.2 gm/dL (3.5-5.0); BILIRUBIN,TOTAL 0.6 mg/dL (0.0-1.0); CALCIUM 9.2 mg/dL (8.4-10.2); CREATININE, serum 0.67 (0.52-1.25); POTASSIUM 3.5 mmol/L (3.4-5.0); TOTAL PROTEIN 7.3 gm/dL (6.4-8.2)
[2019-12-05] VITALS (12 sets, daily range): BP systolic 103–158; BP diastolic 65–108; PULSE 53–88; TEMP 97–97.6
[~2019-12-05] VITALS: Ht 167.6 cm; Wt 129.8 kg
[2019-12-05 11:08] LABS: ALBUMIN 4.3 gm/dL (3.5-5.0); BILIRUBIN,TOTAL 0.6 mg/dL (0.0-1.0); CALCIUM 9.2 mg/dL (8.4-10.2); CREATININE, serum 0.63 (0.52-1.25); POTASSIUM 3.7 mmol/L (3.4-5.0); TOTAL PROTEIN 7.4 gm/dL (6.4-8.2)
[2019-12-05 11:19] LABS: BASO # 0.1 (0.0-0.2); BASO % 0.9 % (0.0-2.0); EOS # 0.2 (0.0-0.7); EOS % 2.5 % (0-4.0); GRAN # 4.4 (1.4-6.5); GRAN % 64.5 % (42.2-75.2); HEMOGLOBIN 13.7 g/dl (12.5-16.0); LYMPH # 1.9 (1.2-3.4); LYMPH % 27.5 % (20.0-51.0); MEAN CELL VOLUME 86 fl (80.0-100.0); MEAN CORPUSCULAR HEMOGLOBIN 28 pg (27.0-31.0); MEAN CORPUSCULAR HGB CONC 33 g/dl (33.0-37.0); MEAN PLATELET VOLUME 9.9 fl (7.4-10.4); MONO # 0.3 (0.1-0.6); MONO % 4.3 % (1.7-9.3); PLATELET COUNT 374 K/mm3 (130-400); RED BLOOD COUNT 4.91 M/mm3 (4.10-5.30); REDCELL DISTRIBUTION WIDTH-CV 13.8 % (11.5-14.5)
== END 2019-12-05 17:10 | disposition home or self-care (01) ==
LOC: EUO 11:00
PROVIDERS: Psychiatry & Neurology Neurology
DX: G35 Multiple sclerosis (principal); Z79.899 Other long term (current) drug therapy; Z87.891 Personal history of nicotine dependence
CPT/HCPCS: J1200; J2930; J7040; J9312; Q5115

== ENCOUNTER 2020-04-21 09:28 | Outpatient (RCR) | payer BC ==
[2020-05-21] MEDS ORDERED: VITAMIN D250 MCG PO (14:12)
[2020-05-21] MEDS ORDERED: SEROQUEL 1100 MG/TAB PO (14:13)
[2020-10-24] MEDS ORDERED: ZOVIRAX800 MG PO (21:33)
[2020-10-24] MEDS ORDERED: PREDNISONE20 MG PO (21:33)
== END 2020-07-20 | disposition home or self-care (01) ==
LOC: WSST
DX: R41.841 Cognitive communication deficit (principal); G35 Multiple sclerosis

== ENCOUNTER → 2020-04-23 | Outpatient (CLI) | payer BC ==
[~2020-04-23] MED LIST changes: +DECADRON 4MG TAB4 MG PO; +DIFLUCAN200 MG PO; +DOXYCYCLINE 10100 MG PO; +OMNICEF 300MG300 MG PO; +OXYGEN; +PREDNISONE20 MG PO; +PROAIR HFA0.09 MG/AC IH; +PROMETHAZINE12.5 M5 PO; +SEROQUEL 1100 MG/TAB PO; +VITAMIN D250 MCG PO; +ZOVIRAX800 MG PO
== END ==
LOC: COL.LAB 14:20
DX: G35 Multiple sclerosis (principal)

== ENCOUNTER 2020-05-21 12:50 | Outpatient (CLI) | payer BC ==
[~2020-05-21] VITALS: Ht 167.6 cm; Wt 128.0 kg
[2020-05-21] VITALS (7 sets, daily range): BP systolic 122–134; BP diastolic 55–93; PULSE 62–92; TEMP 98.3
[~2020-05-21 12:50] MED LIST changes: -DECADRON 4MG TAB4 MG PO; -DIFLUCAN200 MG PO; -DOXYCYCLINE 10100 MG PO; -OMNICEF 300MG300 MG PO; -OXYGEN; -PREDNISONE20 MG PO; -PROAIR HFA0.09 MG/AC IH; -PROMETHAZINE12.5 M5 PO; -SEROQUEL 1100 MG/TAB PO; -VITAMIN D250 MCG PO; -ZOVIRAX800 MG PO
[2020-05-21 13:47] LABS: BASO # 0.1 (0.0-0.2); BASO % 0.8 % (0.0-2.0); EOS # 0.1 (0.0-0.7); EOS % 1.6 % (0-4.0); GRAN # 5.8 (1.4-6.5); HEMATOCRIT 39.8 % (37.0-47.0); HEMOGLOBIN 13.1 g/dl (12.5-16.0); LYMPH # 2.3 (1.2-3.4); LYMPH % 26.3 % (20.0-51.0); MEAN CELL VOLUME 82 fl (80.0-100.0); MEAN CORPUSCULAR HEMOGLOBIN 27 pg (27.0-31.0); MEAN CORPUSCULAR HGB CONC 33 g/dl (33.0-37.0); MEAN PLATELET VOLUME 9.5 fl (7.4-10.4); MONO # 0.4 (0.1-0.6); MONO % 4.1 % (1.7-9.3); PLATELET COUNT 382 K/mm3 (130-400); RED BLOOD COUNT 4.83 M/mm3 (4.10-5.30); REDCELL DISTRIBUTION WIDTH-CV 13.2 % (11.5-14.5)
[2020-05-21 13:58] LABS: ALBUMIN 4.1 gm/dL (3.5-5.0); BILIRUBIN,TOTAL 0.5 mg/dL (0.0-1.0); CREATININE, serum 0.58 (0.52-1.25); POTASSIUM 4.1 mmol/L (3.4-5.0); TOTAL PROTEIN 7.8 gm/dL (6.4-8.2)
[2020-05-21] MEDS ORDERED: VITAMIN D250 MCG PO (14:12)
[2020-05-21] MEDS ORDERED: SEROQUEL 1100 MG/TAB PO (14:13)
[2020-10-24] MEDS ORDERED: ZOVIRAX800 MG PO (21:33)
[2020-10-24] MEDS ORDERED: PREDNISONE20 MG PO (21:33)
== END 2020-05-21 17:47 | disposition home or self-care (01) ==
LOC: EUO 12:50
PROVIDERS: Psychiatry & Neurology Neurology
DX: Q51.5 Agenesis and aplasia of cervix (principal)
CPT/HCPCS: J1200; J2930; J7040; Q5115

== ENCOUNTER 2020-09-10 18:12 | Emergency (ER) | payer BC ==
[~2020-09-10] VITALS: Ht 167.6 cm; Wt 122.7 kg
[~2020-09-10 18:12] MED LIST changes: +SEROQUEL 1100 MG/TAB PO; +VITAMIN D250 MCG PO
[2020-09-10 18:50] VITALS: TEMP 99.4
[2020-09-10 20:07] LABS: BASO % 0.4 % (0.0-2.0); EOS % 0.4 % (0-4.0); GRAN # 4.6 (1.4-6.5); GRAN % 67.5 % (42.2-75.2); HEMATOCRIT 44.5 % (37.0-47.0); HEMOGLOBIN 14.5 g/dl (12.5-16.0); LYMPH # 1.5 (1.2-3.4); LYMPH % 22.8 % (20.0-51.0); MEAN CELL VOLUME 83 fl (80.0-100.0); MEAN CORPUSCULAR HEMOGLOBIN 27 pg (27.0-31.0); MEAN CORPUSCULAR HGB CONC 33 g/dl (33.0-37.0); MONO # 0.6 (0.1-0.6); MONO % 8.6 % (1.7-9.3); PLATELET COUNT 245 K/mm3 (130-400); RED BLOOD COUNT 5.38 M/mm3 (4.10-5.30); REDCELL DISTRIBUTION WIDTH-CV 15.6 % (11.5-14.5)
[2020-09-10 20:09] LABS: ALBUMIN 4.3 gm/dL (3.5-5.0); BILIRUBIN,TOTAL 0.6 mg/dL (0.0-1.0); CALCIUM 8.7 mg/dL (8.4-10.2); CREATININE, serum 0.89 (0.52-1.25); POTASSIUM 3.7 mmol/L (3.4-5.0); TOTAL PROTEIN 7.5 gm/dL (6.4-8.2)
[2020-09-10 21:41] LABS: C-REACTIVE PROTEIN 1.7 mg/dL (0.0-0.9)
[2020-09-10 23:41] VITALS: BP 122/89; PULSE 80
[2020-10-24] MEDS ORDERED: PREDNISONE20 MG PO (21:33)
[2020-10-24] MEDS ORDERED: ZOVIRAX800 MG PO (21:33)
== END 2020-09-10 23:45 | disposition home or self-care (01) ==
LOC: COL.ER 18:12
PROVIDERS: Nurse Practitioner
DX: U07.1 COVID-19 (principal); G35 Multiple sclerosis; Z87.891 Personal history of nicotine dependence
CPT/HCPCS: J2405; J7030

== ENCOUNTER 2020-09-13 13:12 | Emergency (ER) | payer BC ==
[~2020-09-13] VITALS: Ht 167.6 cm; Wt 122.7 kg
[2020-09-13 14:04] LABS: BASO % 0.2 % (0.0-2.0); GRAN # 3.7 (1.4-6.5); HEMATOCRIT 40.7 % (37.0-47.0); HEMOGLOBIN 13.3 g/dl (12.5-16.0); LYMPH # 1.2 (1.2-3.4); LYMPH % 22.3 % (20.0-51.0); MEAN CELL VOLUME 82 fl (80.0-100.0); MEAN CORPUSCULAR HEMOGLOBIN 27 pg (27.0-31.0); MEAN CORPUSCULAR HGB CONC 33 g/dl (33.0-37.0); MEAN PLATELET VOLUME 11.5 fl (7.4-10.4); MONO # 0.3 (0.1-0.6); MONO % 6.3 % (1.7-9.3); PLATELET COUNT 191 K/mm3 (130-400); RED BLOOD COUNT 4.97 M/mm3 (4.10-5.30); REDCELL DISTRIBUTION WIDTH-CV 15.5 % (11.5-14.5)
[2020-09-13 14:20] LABS: ALBUMIN 3.9 gm/dL (3.5-5.0); BILIRUBIN,TOTAL 0.6 mg/dL (0.0-1.0); CREATININE, serum 0.66 (0.52-1.25); POTASSIUM 3.3 mmol/L (3.4-5.0); TOTAL PROTEIN 7.1 gm/dL (6.4-8.2)
[2020-09-13] MEDS ORDERED: PROMETHAZINE12.5 M5 PO (14:29)
[2020-09-13 16:00] VITALS: BP 97/60; PULSE 84; TEMP 99.6
[2020-10-24] MEDS ORDERED: ZOVIRAX800 MG PO (21:33)
[2020-10-24] MEDS ORDERED: PREDNISONE20 MG PO (21:33)
== END 2020-09-13 16:00 | disposition home or self-care (01) ==
LOC: COL.ER 13:12
PROVIDERS: Physician Assistant
DX: U07.1 COVID-19 (principal); B34.9 Viral infection, unspecified
CPT/HCPCS: J2405; J7030

== ENCOUNTER 2020-09-14 21:49 | Emergency (ER) | payer BC ==
[~2020-09-14] VITALS: Ht 167.6 cm; Wt 122.7 kg
[~2020-09-14 21:49] MED LIST changes: +PROMETHAZINE12.5 M5 PO
[2020-09-14 22:39] LABS: BASO % 0.2 % (0.0-2.0); EOS % 0.4 % (0-4.0); GRAN # 3.9 (1.4-6.5); GRAN % 81.3 % (42.2-75.2); HEMATOCRIT 39.4 % (37.0-47.0); HEMOGLOBIN 12.8 g/dl (12.5-16.0); LYMPH # 0.7 (1.2-3.4); LYMPH % 13.4 % (20.0-51.0); MEAN CELL VOLUME 84 fl (80.0-100.0); MEAN CORPUSCULAR HEMOGLOBIN 27 pg (27.0-31.0); MEAN CORPUSCULAR HGB CONC 33 g/dl (33.0-37.0); MEAN PLATELET VOLUME 11.8 fl (7.4-10.4); MONO # 0.2 (0.1-0.6); MONO % 4.5 % (1.7-9.3); PLATELET COUNT 191 K/mm3 (130-400); RED BLOOD COUNT 4.67 M/mm3 (4.10-5.30); REDCELL DISTRIBUTION WIDTH-CV 15.8 % (11.5-14.5)
[2020-09-14 22:48] LABS: ALBUMIN 3.8 gm/dL (3.5-5.0); BILIRUBIN,TOTAL 0.5 mg/dL (0.0-1.0); CREATININE, serum 0.73 (0.52-1.25); POTASSIUM 3.8 mmol/L (3.4-5.0); TOTAL PROTEIN 6.7 gm/dL (6.4-8.2)
[2020-09-15] MEDS ORDERED: DOXYCYCLINE 10100 MG PO (00:30)
[2020-09-15 00:36] VITALS: BP 128/65; PULSE 85; TEMP 98.7
[2020-10-24] MEDS ORDERED: ZOVIRAX800 MG PO (21:33)
[2020-10-24] MEDS ORDERED: PREDNISONE20 MG PO (21:33)
== END 2020-09-15 00:36 | disposition home or self-care (01) ==
LOC: COL.ER 21:49
PROVIDERS: Personal Emergency Response Attendant
DX: U07.1 COVID-19 (principal); J18.9 Pneumonia, unspecified organism; R10.9 Unspecified abdominal pain; F43.10 Post-traumatic stress disorder, unspecified; Z32.02 Encounter for pregnancy test, result negative
CPT/HCPCS: J1790; J2270; J7030; Q9967

== ENCOUNTER 2020-10-05 16:02 | Inpatient (IN) | payer BC ==
[~2020-10-05] VITALS: Ht 167.6 cm; Wt 111.4 kg
[~2020-10-05 16:02] MED LIST changes: +DOXYCYCLINE 10100 MG PO
[2020-10-05 16:58] LABS: BASO % 0.3 % (0.0-2.0); EOS # 0.1 (0.0-0.7); EOS % 0.7 % (0-4.0); GRAN # 5.5 (1.4-6.5); GRAN % 76.2 % (42.2-75.2); HEMOGLOBIN 11.8 g/dl (12.5-16.0); LYMPH # 1.2 (1.2-3.4); LYMPH % 17.2 % (20.0-51.0); MEAN CELL VOLUME 81 fl (80.0-100.0); MEAN CORPUSCULAR HEMOGLOBIN 27 pg (27.0-31.0); MEAN CORPUSCULAR HGB CONC 33 g/dl (33.0-37.0); MEAN PLATELET VOLUME 13.3 fl (7.4-10.4); MONO # 0.3 (0.1-0.6); MONO % 4.3 % (1.7-9.3); PLATELET COUNT 257 K/mm3 (130-400); RED BLOOD COUNT 4.43 M/mm3 (4.10-5.30); REDCELL DISTRIBUTION WIDTH-CV 17.1 % (11.5-14.5)
[2020-10-05 17:00] LABS: HEMATOCRIT 35.8 % (37.0-47.0)
[2020-10-05 17:09] LABS: ALANINE AMINOTRANSFERASE 117 U/L (4-34); ALBUMIN 3.3 gm/dL (3.5-5.0); ALKALINE PHOSPHATASE 88 U/L (50-136); ANION GAP 10 mmol/L (7-16); AST,SGOT 203 U/L (15-37); BILIRUBIN,TOTAL 1.4 mg/dL (0.0-1.0); BLOOD UREA NITROGEN 14 mg/dL (7-17); CALCIUM 7.6 mg/dL (8.4-10.2); CARBON DIOXIDE 25 mmol/L (22-30); CHLORIDE 98 mmol/L (98-107); CREATININE, serum 0.83 (0.52-1.25); GLUCOSE 120 mg/dL (74-106); POTASSIUM 3.5 mmol/L (3.4-5.0); SODIUM 133 mmol/L (137-145); TOTAL PROTEIN 6.5 gm/dL (6.4-8.2)
[2020-10-05 17:41] LABS: TROPONIN-I < 0.012 ng/mL (0.000-0.035)
[2020-10-05 17:54] LABS: C-REACTIVE PROTEIN 5.8 mg/dL (0.0-0.9)
--- NOTE | 2020-10-05 22:19 | NUR ---
Arrived to room 356 via stretcher. Admission assessment complete.
[2020-10-05 23:00] VITALS: BP 131/74; PULSE 86; TEMP 97.6
--- NOTE | 2020-10-06 02:26 | NUR ---
Pt heard yelling out at nurses station. This nurse to room and patient states "I think that pill you gave me caused an anxiety attack. My heart is beating so fast." VS stable-BP 100/66, P 88, R 24 and O2 sat 95% on 3L/NC. Denies chest pain. Patient then states "I think I really just gave myself an anxiety attack." Still visibly upset-notified BRIDGETTE SmithCZ-Trnodmtcini-Kvuetv 0.5mg given IV at this time. Patient is much calmer and is not shaking as bad. Cardiopulm here to complete EKG. Will monitor.
[2020-10-06 04:31] VITALS: BP 119/58; PULSE 81; TEMP 98.8
--- NOTE | 2020-10-06 05:30 | NUR ---
Rested well after receiving IV ativan for anxiety attack. VS remained stable. Tele showing SR. Does have a cough but not producing anything with it. O2@3L/NC with adequate O2 Saturations. Resting with eyes closed. No s/s of pain or discomfort noted.
[2020-10-06 08:30] VITALS: BP 97/71; PULSE 81; TEMP 97.3
[2020-10-06 09:30] LABS: BASO % 0.2 % (0.0-2.0); GRAN # 4.6 (1.4-6.5); GRAN % 83.6 % (42.2-75.2); HEMOGLOBIN 10.6 g/dl (12.5-16.0); LYMPH # 0.7 (1.2-3.4); LYMPH % 12.2 % (20.0-51.0); MEAN CELL VOLUME 83 fl (80.0-100.0); MEAN CORPUSCULAR HEMOGLOBIN 27 pg (27.0-31.0); MEAN CORPUSCULAR HGB CONC 33 g/dl (33.0-37.0); MEAN PLATELET VOLUME 12.6 fl (7.4-10.4); MONO # 0.2 (0.1-0.6); MONO % 2.9 % (1.7-9.3); PLATELET COUNT 198 K/mm3 (130-400); RED BLOOD COUNT 3.92 M/mm3 (4.10-5.30)
[2020-10-06 09:32] LABS: HEMATOCRIT 32.4 % (37.0-47.0)
[2020-10-06 09:39] LABS: CALCIUM 7.4 mg/dL (8.4-10.2); CREATININE, serum 0.47 (0.52-1.25); POTASSIUM 3.9 mmol/L (3.4-5.0)
--- NOTE | 2020-10-06 09:51 | NUR ---
home economics extension worker met with patient to discuss discharge planning. Patient is in recovery from having covid. Patient resides with her fiance and has BCBS with her job. Patient states her primary care provider is Dr Mccoy and she has prescription coverage through her insurance. Physical therapy is working with patient. Patient plans to return home.
[2020-10-06 11:24] VITALS: BP 105/79; PULSE 86; TEMP 97.7
[2020-10-06 16:28] VITALS: BP 123/97; PULSE 117; TEMP 97.9
[2020-10-06 19:12] VITALS: BP 124/78; PULSE 104; TEMP 98.6
--- NOTE | 2020-10-06 23:00 | NUR ---
PT ALERT AND ORIENTED. PT HAS INCREASED ANXIETY, MEDICATION ADMINISTERED PER ORDERS. PT ABLE TO CONVERSE, PT VISITOR AT BEDSIDE. PT STATES SHE IS FEELING SHORT OF AIR, SPO2 ASSESSED AND HOB ELEVATED. PT SPO2 REMAINED ABOVE 95% THERAPEUTIC COMMUNICATION PROVIDED. PT STATES SHE IS HAVING LABILE EPISODES OF FEELING TOO HOT OR COLD. PT AFEBRILE AT THIS TIME. WILL CONTINUE TO MONITOR. PT ABX ADMINISTERED PER ORDERS. PT TACHYPNIC AND TACHYCARDIC, TREMORS OF HANDS NOTED. PT STATES ONCE HER ANXIETY MEDICATIONS "KICK IN" THE TREMORS USUALLY SUBSIDE. PT STATED SHE FELT NAUSEOUS. VARGAS WASHBURN NP NOTIFIED FOR PRN NAUSEA MEDICATION. BIN PROVIDED IF EMESIS SHOULD OCCUR. PT CALL LIGHT WITHIN REACH.
--- NOTE | 2020-10-07 00:34 | NUR ---
PT SATURATION AT 90%, TURNED O2 UP TO 3.5L PER NC. PT STOPPED BP READINGING MIDWAY, STATING TOO MUCH DISCOMFORT IN UPPER ARM. PT BP OBTAINED FROM RIGHT FOREARM.
[2020-10-07 00:35] VITALS: BP 119/76; PULSE 121; TEMP 98.5
--- NOTE | 2020-10-07 00:35 | NUR ---
PT SATURATIONS AT 92-93% AT 3.5L NC.
--- NOTE | 2020-10-07 00:41 | NUR ---
PT RESPIRATIONS ELEVATED AT 38. PT DENIES FEELING SOA, O2 INCREASED TO 3.5L. PT STATES THEY DON'T FEEL LIKE THEY ARE BREATHING OVER BASELINE AT THIS TIME. SPO2 93%.
--- NOTE | 2020-10-07 01:12 | NUR ---
VARGAS WASHBURN NP NOTIFIED OF PROGRESS NOTE AND MEDICATION DOSING.
--- NOTE | 2020-10-07 02:50 | NUR ---
THIS RN HAS OFFERED PT MULTIPLE ATTEMPTS TO AMBULATE TO BATHROOM. PT REFUSING.
[2020-10-07 04:09] VITALS: BP 120/65; PULSE 108; TEMP 97.6
--- NOTE | 2020-10-07 05:08 | NUR ---
PT CONTINUING ON PLAN OF CARE. PT EXPRESSED ANXIETY IN AT THE START OF SHIFT, GIVEN SCHEDULED ANXIETY MEDICATION PER ORDERS. PT EXPRESSED NEEDING MEDICATION FOR HEARTBURN, PROTONIX IV PER ORDERS. PT REFUSING TO AMBULATE TO RESTROOM. PT COMPLAINED OF BACK PAIN WHEN ADJUSTING IN BED, RESOLVED QUICKLY AFTER GETTING SITUATED. PT FREE FROM INJURY THIS SHIFT.
--- NOTE | 2020-10-07 07:22 | NUR ---
RECEIVED REPORT FROM REBECCA PUENTE. PT AWAKE/ALERT RESTING IN BED. DENIES ANY PAIN. NO OTHER NEEDS AT THIS TIME. CALL SNOW IN REACH.
[2020-10-07 07:53] LABS: GRAN # 5.4 (1.4-6.5); GRAN % 84.7 % (42.2-75.2); HEMATOCRIT 31.2 % (37.0-47.0); LYMPH # 0.7 (1.2-3.4); LYMPH % 11.1 % (20.0-51.0); MEAN CELL VOLUME 83 fl (80.0-100.0); MEAN CORPUSCULAR HEMOGLOBIN 27 pg (27.0-31.0); MEAN CORPUSCULAR HGB CONC 32 g/dl (33.0-37.0); MEAN PLATELET VOLUME 12.8 fl (7.4-10.4); MONO # 0.2 (0.1-0.6); MONO % 2.8 % (1.7-9.3); PLATELET COUNT 228 K/mm3 (130-400); RED BLOOD COUNT 3.77 M/mm3 (4.10-5.30); REDCELL DISTRIBUTION WIDTH-CV 17.2 % (11.5-14.5)
[2020-10-07 08:05] LABS: CALCIUM 7.6 mg/dL (8.4-10.2); CREATININE, serum 0.72 (0.52-1.25); MAGNESIUM 2.3 mg/dL (1.6-2.3); POTASSIUM 3.8 mmol/L (3.4-5.0)
[2020-10-07 09:35] VITALS: BP 113/72; PULSE 105; TEMP 98.5
--- NOTE | 2020-10-07 09:53 | NUR ---
NOTIFIED THAT PT SATTING 88% ON EAR LOBE WITH PULSE OX. PT TURNED TO 3L AND THEN STAYED AT 89%. TITRATED TO 4L AND PT SATTING 91-92%. RT NOTIFIED, ATTEMPTED TO CONTACT BRIDGETTE DREW AND NO ANSWER AT THIS TIME. WILL ATTEMPT LATER.
--- NOTE | 2020-10-07 10:11 | NUR ---
PT STATED "I HAVEN'T PEED IN LIKE 4 DAYS". PT THEN HAD 350ML OUT OF DARK MANUEL URINE THAT WAS REPORTED FOUL SMELLING. RAJENDRA ANGELES NOTIFIED.
--- NOTE | 2020-10-07 11:00 | NUR ---
PT TACHYPNEIC DUE TO ANXIETY. RESPIRATIONS DECREASED WHEN PT CALMED DOWN. PT STATED SHE HADN'T VOIDED IN 4 DAYS. URINE DARK MANUEL, VERY STRONG, CLEAR. PT ALSO STATED SHE HAS NOT HAD A BM IN AWHILE. SHE CANNOT RECALL LAST TIME SHE HAD A BM.
[2020-10-07 12:16] VITALS: BP 142/93; PULSE 113; TEMP 98.4
[2020-10-07 17:33] VITALS: BP 121/57; PULSE 113; TEMP 97.6
[2020-10-07 17:56] LABS: HEPATITIS A ANTIBODY-IGM Negative (Negative); HEPATITIS B SURFACE ANTIGEN Negative (Negative); HEPATITIS C VIRUS ANTIBODY Negative (Negative)
--- NOTE | 2020-10-07 18:46 | NUR ---
PT HAD UNEVENTFUL DAY. 02 INCREASED TO 4L/MIN. PT RESTING IN BED. CALL SNOW IN REACH. NO OTHER NEEDS/REQUESTS AT THIS TIME.
[2020-10-07 21:05] VITALS: BP 118/82; PULSE 117; TEMP 98.6
--- NOTE | 2020-10-07 23:27 | NUR ---
PT ALERT AND ORIENTED. PT AMBULATED TO COMMODE, TOLERATED FAIRLY WELL. SOA WITH EXERTION. TWO PERSON ASSIST TO COMMODE, WEAK GAIT. PT HAD APPROXIMATELY 500ML OUTPUT, MALODOROUS, DARK MANUEL URINE. PT DENIES PAIN AT THIS TIME. PT CALL LIGHT WIHTIN REACH. PT CURRENTLY RESTING.
--- NOTE | 2020-10-07 23:55 | NUR ---
PT CONFUSED WHEN ROUNDING FOR PAIN. PT WAS SLEEPING, PT WOKE UP AND SAID "HELP, SOMEONE WANTS TO FIGHT ME." PT REORIENTED. PT ORIENTED TO PLACE, TIME. PT RETURNED TO SLEEPING.
[2020-10-08] VITALS: BP 115/77; PULSE 99; TEMP 98.4
--- NOTE | 2020-10-08 00:29 | NUR ---
RN NOTIFIED OF SPO2 BEING AT 87%. RECHECKED AT THIS TIME. SPO2 97% ON 4.5L O2
[2020-10-08 04:26] VITALS: BP 116/65; PULSE 81; TEMP 97.7
--- NOTE | 2020-10-08 04:29 | NUR ---
PT AT 98% ON 4.5L O2, TITRATED DOWN TO 3.5L. SPO2 REMAINS AT 98%. WILL CONTINUE TO MONITOR.
--- NOTE | 2020-10-08 05:20 | NUR ---
PT CONTINUING ON PLAN OF CARE. DURING 0400 VS, PT STATES SHE IS FEELING BETTER AND WAS ABLE TO GET A FEW HOURS REST. PT DENIES PAIN THIS SHIFT. PT IV LEAKING, RESTARTED IN LEFT UPPER ARM, 22G. PT HAD INTERMITTENT CONFUSION DUIRNG NIGHT AFTER BEING WOKEN UP FOR 0000 VS. PT REORIENTED EASILY. AT 0400 VS PT ALERT AND ORIENTED. PT FREE FROM INJURY THIS SHIFT. PT CONTINUING TO RECEIVE ANTIBIOTICS PER ORDERS TO MANAGE INFECTION.
[2020-10-08 05:53] LABS: COLLECTION METHOD CLEAN CATCH
[2020-10-08 06:09] LABS: MUCOUS Present /lpf; PH 5 (5-8); SQUAMOUS EPITHELIAL 0-2 /hpf; URINE APPEARANCE Turbid; URINE BACTERIA None Seen /hpf; URINE BILIRUBIN Negative (NEGATIVE); URINE BLOOD Negative (NEGATIVE); URINE COLOR Amber; URINE GLUCOSE Negative (NEGATIVE); URINE KETONE Negative (NEGATIVE); URINE LEUKOCYTE ESTERASE Negative (NEGATIVE); URINE NITRATE Negative (NEGATIVE); URINE PROTEIN(semi-quant) 1+ (NEGATIVE); URINE RBC None Seen /hpf
--- NOTE | 2020-10-08 07:22 | NUR ---
RECIEVED REPORT FROM REBECCA PUENTE. PT AWAKE IN BED, RESTING. DENIES ANY PAIN. PT HAS NO OTHER NEEDS/REQUESTS AT THIS TIME. CALL SNOW IN REACH.
[2020-10-08 08:01] VITALS: BP 103/80; PULSE 80; TEMP 97.9
[2020-10-08 08:49] LABS: MEAN CELL VOLUME 84 fl (80.0-100.0); MEAN CORPUSCULAR HEMOGLOBIN 27 pg (27.0-31.0); MEAN CORPUSCULAR HGB CONC 32 g/dl (33.0-37.0); MEAN PLATELET VOLUME 12.9 fl (7.4-10.4); PLATELET COUNT 225 K/mm3 (130-400); RED BLOOD COUNT 3.73 M/mm3 (4.10-5.30); REDCELL DISTRIBUTION WIDTH-CV 17.5 % (11.5-14.5)
[2020-10-08 08:50] LABS: HEMATOCRIT 31.4 % (37.0-47.0)
[2020-10-08 08:53] LABS: CALCIUM 8.1 mg/dL (8.4-10.2); CREATININE, serum 0.63 (0.52-1.25); POTASSIUM 4.4 mmol/L (3.4-5.0)
[2020-10-08 10:45] LABS: BAND 14 % (0-10); LYMPHOCYTE 12 % (20.0-51.0); NEUTROPHILS 72 % (42.0-75.2); OVALOCYTES 1+; PLATELET ESTIMATE NORMAL (NORMAL)
[2020-10-08 10:46] LABS: SPHEROCYTE 1+
[2020-10-08 10:47] LABS: SCHISTOCYTES 1+
[2020-10-08 12:45] VITALS: BP 123/80; PULSE 86; TEMP 97.8
--- NOTE | 2020-10-08 14:05 | NUR ---
Primary nurse was assisted with [phone] patient care by [employer] student Kalyn Sheridan and [employer] instructor Rena Chua MSN, RN
--- NOTE | 2020-10-08 15:33 | NUR ---
PT HAD EPISODE OF FIT OF COUGHING. OXYGEN WAS ASSESSED AND FOUND TO BE LOW. O2 INCREASED TO 5L. PT NOW STATING AT 96%. WILL CONTINUE TO MONITOR.
[2020-10-08 15:52] VITALS: BP 120/76; PULSE 101; TEMP 98.6
--- NOTE | 2020-10-08 15:57 | NUR ---
PT REPOSITIONED IN BED. SAYS SHE IS MUCH MORE COMFORTABLE AND WILL SLEEP. PT REQUESTED MORE WATER. NO OTHER NEEDS AT THIS TIME. CALL SNOW IN REACH.
--- NOTE | 2020-10-08 16:48 | NUR ---
STUDENT NURSE FILLED OUT PT ASSESSMENT. I MADE/ADDED A FEW CHANGES IN A NEW SHIFT ASSESSMENT. EVERYTHING ELSE WAS ACCURATE.
--- NOTE | 2020-10-08 17:56 | NUR ---
PT HAD UNEVENTFUL DAY. RESTING IN BED. CALL SNOW IN REACH. DENIES PAIN. NO OTHER CONCERNS/NEEDS AT THIS TIME.
[2020-10-08 19:15] VITALS: BP 113/81; PULSE 118; TEMP 98.5
[2020-10-09 00:45] VITALS: BP 109/78; PULSE 102; TEMP 98.4
[2020-10-09 04:29] VITALS: BP 126/97; PULSE 84; TEMP 97.9
--- NOTE | 2020-10-09 05:16 | NUR ---
PT HAD UNEVENTFUL NIGHT. CONSUMED LESS THAN 100ML FLUID, DENIED HAVING TO URINATE. THIS NURSE ATTEMPTED TO MOTIVATE PT TO AMBULATE, PT REFUSED AND STATES " WE WILL WORK ON MOVING AROUND TOMORROW". THIS NURSE EXPLAINED THE IMPORTANCE OF AMBULATION. PT VERBALIZES UNDERSTANDING. PT EXPRESSES NO ADDITONAL NEEDS AT THIS TIME. ALL NEEDS MET.
--- NOTE | 2020-10-09 07:18 | NUR ---
PATIENT SLEEPING IN BED. NO SIGNS OF DISTRESS NOTED
--- NOTE | 2020-10-09 07:24 | NUR ---
LEAD SECURITY OFFICER CALLED TO NOTIFY NURSING STAFF THAT PATIENT REFUSES TO HAVE LAB DRAWN THIS MORNING.
[2020-10-09 08:14] VITALS: BP 117/86; PULSE 88; TEMP 98
--- NOTE | 2020-10-09 09:35 | NUR ---
PATIENT ASSESSMENT COMPLETED. SHE JUST WANTS TO SLEEP, TALKED ABOUT NEEDING TO GET UP AND MOVING SHE REFUSES TO SHOWER AT THIS TIME BECAUSE SHE REPORTS OT IS SUPPOSE TO HELP HER WITH THIS, IF NOT I WILL ASSIST HER THIS AFTERNOON.COMPLAINS OF LOW BACK PAIN
[2020-10-09 12:07] VITALS: BP 122/89; PULSE 103; TEMP 98.3
--- NOTE | 2020-10-09 13:43 | NUR ---
PATIENT CONTINUES TO REFUSE TO HAVE LAB WORK COMPLETED TODAY.
--- NOTE | 2020-10-09 14:22 | NUR ---
PATIENT RESTING IN BED. SHE REFUSES TO GET UP TO THE CHAIR AND OR EVEN GO IN THE SHOWER.TALKED TO HER ABOUT GETTING UP AND MOVING RISK OF BLOOD CLOTS AND CONTINUE TO GET WEAKER
[2020-10-09 16:39] VITALS: BP 128/85; PULSE 112; TEMP 98.7
--- NOTE | 2020-10-09 19:18 | NUR ---
PT REFUSED AM LABS. UNABLE TO FULLY COMPLETE K+ PROTOCOL. DAY SHIFT DID NOT COMPLETE K+ PROTOCOL.
[2020-10-09 22:08] VITALS: BP 121/78; PULSE 98; TEMP 97.7
--- NOTE | 2020-10-09 23:16 | NUR ---
PT ALERT AND ORIENTED. PT DENIES PAIN AT THIS TIME. PT HAS FINE CRACKLES NOTED IN UPPER LOBES BILATERALLY. DIMINISHED BASES BILATERALLY. PT RESPIRATIONS TACHYPNIC, DENIES SOA. PT BREATHING SHALLOW. PT EXPRESSES FEELING TIRED AND HOPING TO REST TONIGHT. PT CALL LIGHT WITHIN REACH.
[2020-10-10] VITALS (7 sets, daily range): BP systolic 108–128; BP diastolic 69–88; PULSE 79–103; TEMP 97.5–98.9
--- NOTE | 2020-10-10 04:36 | NUR ---
PT SPO2 98% ON 3.5L, TITRATED DOWN TO 3L, SPO2 MAINTAINED ABOVE 95%/
--- NOTE | 2020-10-10 05:04 | NUR ---
PT CONTINUING ON PLAN OF CARE. PT DENIED PAIN THROUGHOUT SHIFT. PT DID NOT AMBULATE THIS SHIFT. DENIED NEED TO VOID OR HAVE BM. PT ENCOURAGED TO AMBULATE. PT CONTINUES TO STATE SHE IS FEELING TIRED OR "GROGGY" ABLE TO SLEEP THIS SHIFT. PT VS REMAINED STABLE, CONTINUING ON ANTIBIOTICS PER ORDERS TO MANAGE INFECTION. PT FREE FROM INJURY THIS SHIFT.
--- NOTE | 2020-10-10 11:00 | NUR ---
This nurse was able to motivate pt. to shower. Pt was able to ambulate 10 steps using walker, pt showered (refused to wash hair), linens changed. This nurse will return to continue to motivate pt to ambulate, hydrate and use bathroom. Pt. is very reluctanct to get off her bed, this nurse finds it difficult to motivate her but has been succesful thus far. Pt. continues to refuse to eat. This nurse reviewed the importance of food consumption, pt. verbalizes understanding and states "I will eat chicken tenders and coke for lunch". This nurse recommended to consume water instead, pt refuses. Nurse will continue to motivate pt and reiterate aforementioned.
--- NOTE | 2020-10-10 18:19 | NUR ---
PT HAD BETTER PRODUCTIVE DAY, PT SHOWERED, PT AMBULATED 20-30 STEPS, PT CONSUMED WATER RATHER THAN SODA, PT APPETITE REMAINS UNCHANGED, PT DID NOT EAT THIS DAY. THIS NURSE REVIEWED THE IMPORTANCE OF FLUID AND FOOD CONSUMPTION. PT VRBALIZES UNDERSTANDING. PT HAD NO BM THIS DAY, PT DID VOID, I&O NOTED AND RECORDED. ALL MEDICATIONS ADMINISTERED ORDERED. PT EXPRESSES NO ADDITIONAL NEEDS AT THIS TIME. CALL LIGHT WITHIN REACH.
--- NOTE | 2020-10-10 21:13 | NUR ---
ALERT AND OX4. RATING PAIN 0/10 TO RT HIP UNLESS MOVES THEN SHOOTING PAIN TO A 5/10. DENIES SOA, CHEST PAIN OR DIZZY. PM MEDS GIVEN. REPOSITIONED IN BED W PILLOWS FOR COMFORT. LIGHT DOWN, CALL LIGHT WI REACH. PURE WICK IN FOR URINE DRAINAGE. NEEDS MET.
[2020-10-11 03:52] VITALS: BP 115/85; PULSE 71; TEMP 97.7
--- NOTE | 2020-10-11 05:28 | NUR ---
PT SLEPT THROUGH THE NIGHT WITHOUT INCIDENT. NEEDS MET.
[2020-10-11 08:11] LABS: MEAN CELL VOLUME 85 fl (80.0-100.0); MEAN CORPUSCULAR HGB CONC 31 g/dl (33.0-37.0); MEAN PLATELET VOLUME 11.6 fl (7.4-10.4); PLATELET COUNT 247 K/mm3 (130-400); REDCELL DISTRIBUTION WIDTH-CV 18.1 % (11.5-14.5)
[2020-10-11 08:16] LABS: HEMATOCRIT 31.5 % (37.0-47.0); HEMOGLOBIN 9.9 g/dl (12.5-16.0); MEAN CORPUSCULAR HEMOGLOBIN 27 pg (27.0-31.0)
[2020-10-11 08:33] LABS: CALCIUM 8.2 mg/dL (8.4-10.2); CREATININE, serum 0.55 (0.52-1.25); MAGNESIUM 2.2 mg/dL (1.6-2.3); POTASSIUM 4.6 mmol/L (3.4-5.0)
[2020-10-11 09:10] VITALS: BP 113/80; PULSE 88; TEMP 97.6
[2020-10-11 10:31] LABS: BAND 5 % (0-10); LYMPHOCYTE 16 % (20.0-51.0); NEUTROPHILS 70 % (42.0-75.2); PLATELET ESTIMATE NORMAL (NORMAL)
[2020-10-11 10:32] LABS: ANISOCYTOSIS 2+; HYPOCHROMIA 1+; OVALOCYTES 1+
[2020-10-11 12:58] VITALS: BP 109/82; PULSE 87; TEMP 97.5
[2020-10-11 15:33] VITALS: BP 111/81; PULSE 85; TEMP 97.8
--- NOTE | 2020-10-11 18:18 | NUR ---
O2 WEANED TO ROOM AIR, PT HAS HAD NO BM TODAY, REFUSES LAXATIVES, PT WAS MILDLY MOTIVATED, STAYED IN BED FOR THE MAJORITY OF THE DAY. THIS NURSE REVIWED IMPORTANCE OF A BALANCED DIET, AND IMPORTANCE OF AMBULATION. PT VERBALIZES UNDERSTANDING. PT EXPRESSES NO ADDITIONAL NEEDS. ALL NEEDS MET. CALL LIGHT WITHIN REACH.
[2020-10-11 20:07] VITALS: BP 131/92; PULSE 98; TEMP 98
[2020-10-12 00:07] VITALS: BP 108/82; PULSE 80; TEMP 97.4
[2020-10-12 04:54] VITALS: BP 127/82; PULSE 75; TEMP 97.6
--- NOTE | 2020-10-12 05:10 | NUR ---
Pt called nurse in last night as she thought her bed was moving and she thought her IV "blew up". Stated it must have been a nightmare and went back to sleep. Rested otherwise. Needs met.
[2020-10-12 09:00] VITALS: BP 118/67; PULSE 110; TEMP 98.5
[2020-10-12] MEDS ORDERED: DECADRON 4MG TAB4 MG PO (10:46)
[2020-10-12] MEDS ORDERED: OMNICEF 300MG300 MG PO (10:47)
[2020-10-12] MEDS ORDERED: DIFLUCAN200 MG PO (10:49)
[2020-10-12] MEDS ORDERED: PROAIR HFA0.09 MG/AC IH (10:50)
[2020-10-12] MEDS ORDERED: OXYGEN (10:52)
--- NOTE | 2020-10-12 11:08 | NUR ---
PATIENT IS ANXIOUS AND NERVOUS ABOUT EXCERCISE OXIMETRY TEST. BEGAN WALK AND MADE IT TO THE DOORWAY OF PATIENT'S ROOM, PATIENT'S OXYGEN DESATURATED TO HIGH 70'S AND OXYGEN WAS TITRATED TO 4L WHERE PATIENT'S OXYGENATION REMAINED AT 92%. SPOKE WITH DR. YODER AND AGREED ON SENDING PATIENT HOME WITH 4L.
--- NOTE | 2020-10-12 11:31 | NUR ---
The patient is ready to discharge today. An exercise oximetry was ordered and she qualified for 4 liters of oxygen. PATRICK met with the patient and informed her of the different DME companies. The patient was interested in getting her oxygen from [facility]. PATRICK contacted and faxed and emailed the oxygen order to Jairon at [facility]. Awaiting delivery of oxygen.
[2020-10-12 13:10] VITALS: BP 118/81; PULSE 88; TEMP 98.1
--- NOTE | 2020-10-12 13:27 | NUR ---
Froilan, at [facility], contacted PATRICK and asked if family could come picking belt operator the portable tank for the patient. PATRICK contacted the patient's fiance, Chano. Chano reports that he would be able to picking belt operator a portable oxygen tank from [facility] and bring it to the patient for the ride home. PATRICK to update the patient's RN. The patient is to discharge back home with her fiance today, 10/12. No additional needs at this time.
--- NOTE | 2020-10-12 14:17 | NUR ---
PT DISCHARGED, PT TRANSPORTED OUT VIA WHEELCHAIR BY MEDICAL STAFF AND ACCOMPANIED BY PTS FIANCE. PT WAS TRANSPORTED OUT WITH 02 4L NC. DISCHARGE INSTRUCTIONS PROVIDED, PT AND FIANCE VERBALIZE UNDERSTANDING. ALL QUESTIONS ANSWERED. ALL NEEDS MET. PT EXPRESSED NO ADDITIONAL NEEDS.
[2020-10-24] MEDS ORDERED: PREDNISONE20 MG PO (21:33)
[2020-10-24] MEDS ORDERED: ZOVIRAX800 MG PO (21:33)
== END 2020-10-12 14:06 | disposition home or self-care (01) | DRG 193 ==
LOC: COL.ER 16:02 → MEDICAL 19:30
PROVIDERS: Internal Medicine; Internal Medicine Infectious Disease; Nurse Practitioner Family; Nurse Practitioner Primary Care; Physician Assistant; Student in an Organized Health Care Education/Training Program; ADMIT Internal Medicine
DX: J12.82 Pneumonia due to coronavirus disease 2019 (principal); J96.01 Acute respiratory failure with hypoxia; M86.9 Osteomyelitis, unspecified; J84.89 Other specified interstitial pulmonary diseases; R74.01 Elevation of levels of liver transaminase levels; E87.6 Hypokalemia; I05.0 Rheumatic mitral stenosis; R53.81 Other malaise; F43.10 Post-traumatic stress disorder, unspecified; F41.9 Anxiety disorder, unspecified; E66.9 Obesity, unspecified; Z86.16 Personal history of COVID-19; Z87.891 Personal history of nicotine dependence
CPT/HCPCS: 99223-AI; 99232-AI; 99233-AI; 99239; C9113; J0692; J0696; J1100; J1450; J1650; J2060; J2920; J7030; J8540; Q9967

== ENCOUNTER → 2020-10-24 | Emergency (ER) | payer BC ==
[~2020-10-24] VITALS: Ht 167.6 cm; Wt 113.6 kg
[~2020-10-24] MED LIST changes: +DECADRON 4MG TAB4 MG PO; +DIFLUCAN200 MG PO; +OMNICEF 300MG300 MG PO; +OXYGEN; +PREDNISONE20 MG PO; +PROAIR HFA0.09 MG/AC IH; +ZOVIRAX800 MG PO
[2020-10-24 22:03] VITALS: BP 120/71; PULSE 62; TEMP 97.2
== END ==
LOC: COL.ER 20:16
DX: G51.0 Bell's palsy (principal); Z86.16 Personal history of COVID-19